=== PATIENT | male | born 2000 | race American Indian/Alaskan Native ===

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

== ENCOUNTER 2022-02-06 19:51 | Emergency (ER) | payer OTHER, SELFPAY ==
[2022-02-06] VITALS (10 sets, daily range): BP systolic 89–131; BP diastolic 51–76; PULSE 71–111; RESP 22–40; TEMP 36.6; O2SAT 96–100; BMI 18.8
--- NOTE | 2022-02-06 20:02 | ED.ALLEREA ---
HPI - Allergic Reaction General Chief complaint: Allergic Reaction Stated complaint: allergic reaction/anaphylaxsis Time Seen by Provider: 02/06/22 19:57 Source: patient and EMS Mode of arrival: EMS History of Present Illness HPI narrative: Patient brought here by ambulance from outdoor activity, he was stung by 3 bees on the right upper extremity. No stinger or welts seen on the arm at this time. Patient took his own EpiPen 0.3 mg and also EMS gave him an additional 0.3 mg epinephrine intramuscular. Also received 50 mg oral Benadryl. Patient states he was having oral swelling. Patient is awake alert oriented x4. Airway patent and intact. Patient on monitor, IV established. No rash or hives Related Data Home Medications Medication Instructions Recorded Confirmed MULTIVITAMIN 2 tab PO QDAY ##0 03/17/16 10/18/20 OMEGA-3 FATTY ACIDS (FISH OIL) 6.25 ml PO BID ##0 03/17/16 10/18/20 [BICITRA] 30 ml PO TID ##0 03/17/16 10/18/20 [PZU085] 8 ml ##0 03/17/16 10/18/20 [D5W/NA/MAG/K] 1,500 ml IV SEE INSTRUCTIONS ##0 03/17/16 10/18/20 [VIACTIV CA=D] 1 tab TID ##0 03/17/16 10/18/20 amlodipine 5 mg tablet (Norvasc) 5 mg PO BID ##0 03/17/16 10/18/20 atovaquone 750 mg/5 mL oral 8.5 ml PO ##0 03/17/16 10/18/20 suspension (Mepron) azithromycin 250 mg tablet 250 mg PO SEE INSTRUCTIONS ##0 03/17/16 10/18/20 (Zithromax Z-Papa) cholecalciferol (vitamin D3) 250 10,000 unit PO ##0 03/17/16 10/18/20 mcg (10,000 unit) tablet clonidine HCl 0.1 mg tablet 0.2 mg PO ##0 03/17/16 10/18/20 darbepoetin amina in polysorbat 100 0.1 mg IJ QWEEKMO ##0 03/17/16 10/18/20 mcg/0.5 mL in polysorbate injection syringe (Aranesp) fluticasone 100 mcg-salmeterol 50 1 puff BID ##0 03/17/16 10/18/20 mcg/dose blistr powdr for inhalation (Advair Diskus) ipratropium bromide 17 2 puff INH TID ##0 03/17/16 10/18/20 mcg/actuation HFA aerosol inhaler (Atrovent HFA) yfarlh-cvxwdvlb-tthvule 2 ecc PO AC ##0 03/17/16 10/18/20 10,000-34,000-55,000 unit capsule,delayed rel (Zenpep) loratadine 10 mg tablet (Claritin) 10 mg PO QDAYP PRN #0 tabs 03/17/16 10/18/20 lorazepam 1 mg tablet 1 mg PO QID ##0 03/17/16 10/18/20 montelukast 10 mg tablet 10 mg PO QDAY ##0 03/17/16 10/18/20 (Singulair) omeprazole 20 mg capsule,delayed 20 mg PO QDAY ##0 03/17/16 10/18/20 release ondansetron 4 mg disintegrating 5 ml PO TID ##0 03/17/16 10/18/20 tablet oxycodone 40 mg tablet,crush 4 ml PO QID ##0 03/17/16 10/18/20 resistant,extended release 12 hr (OxyContin) posaconazole 100 mg tablet,delayed 400 mg PO ##0 03/17/16 10/18/20 release (Noxafil) potassium chloride 8 mEq 3.75 ml PO TID ##0 03/17/16 10/18/20 tablet,extended release (Klor-Con) prednisone 10 mg tablet 10 mg PO #0 tabs 03/17/16 10/18/20 romiplostim 250 mcg subcutaneous 80 mcg SQ QWEEK ##0 03/17/16 10/18/20 solution (Nplate) sirolimus 1 mg/mL oral solution 0.25 mg PO ##0 03/17/16 10/18/20 (Rapamune) sodium chloride 0.9 % 5 ml INH BID ##0 03/17/16 10/18/20 enoxaparin 300 mg/3 mL SUBCUT 09/15/19 10/18/20 subcutaneous solution escitalopram oxalate 5 mg tablet 5 mg PO DAILY 09/15/19 10/18/20 fluticasone propionate 50 2 spray intranasal DAILY 09/15/19 10/18/20 mcg/actuation nasal spray,suspension (Allergy Relief (fluticasone)) pediatric multivitamin no.165 drop PO 09/15/19 10/18/20 (-Toddler Multivitamin oral drops) sevelamer HCl 800 mg tablet 800 mg PO TID 09/15/19 10/18/20 Previous Rx's Medication Instructions Recorded albuterol sulfate 90 mcg/actuation 4 puff inhalation Q4-6H PRN Cough 05/03/20 aerosol inhaler (Ventolin HFA) or wheeze #8.5 grams simethicone 80 mg chewable tablet 80 mg PO BID #120 tabs 06/25/20 (Gas Relief 80 (simethicone)) calcium carbonate 200 mg calcium See Rx Instructions .Route 07/30/20 (500 mg) chewable tablet (Calcium .COMPLEX #90 caps Antacid) lorazepam 2 mg/mL oral concentrate 2 mg sublingual .COMPLEX PRN 12/28/20 seizure #30 mL hydromorphone 2 mg tablet See Rx Instructions .Route 01/28/21 .COMPLEX #152 tabs methadone 10 mg tablet See Rx Instructions .Route 02/07/21 .COMPLEX #60 tabs gabapentin 300 mg capsule See Rx Instructions .Route 02/25/21 .COMPLEX #90 caps epinephrine 0.3 mg/0.3 mL 0.3 mg (0.3 mL) IM Q5-15M PRN 03/18/21 injection, auto-injector anaphylaxis #2 ea oxcarbazepine 150 mg tablet See Rx Instructions .Route 05/31/21 .COMPLEX #240 tabs levetiracetam 500 mg tablet See Rx Instructions .Route 06/14/21 .COMPLEX #120 tabs oxcarbazepine 600 mg tablet 600 mg PO BID #60 tabs 07/12/21 trazodone 100 mg tablet See Rx Instructions .Route 07/12/21 .COMPLEX #30 tabs hydrocortisone 10 mg tablet See Rx Instructions .Route 08/14/21 .COMPLEX #75 tabs epinephrine 0.3 mg/0.3 mL 0.3 mg (0.3 mL) IM Q5-15M PRN 02/06/22 injection, auto-injector (EpiPen anaphylaxis #2 ea 2-Papa) Allergies Allergy/AdvReac Type Severity Reaction Status Date / Time bee venom protein (honey bee) Allergy Severe Anaphylaxis Verified 02/06/22 20:03 chlorhexidine [CHLORHEXIDINE] Allergy Severe ANAPHLAXIS Verified 02/06/22 20:03 clocinizine Allergy Severe Anaphylaxis Verified 02/06/22 20:03 peppermint Allergy Severe Anaphylaxis Verified 02/06/22 20:03 Sulfa (Sulfonamide Allergy Severe Anaphylaxis Verified 02/06/22 20:03 Antibiotics) amphotericin B Allergy Unknown Verified 02/06/22 20:03 [From AMBISOME] ethyl alcohol [ETHYL ALCOHOL] Allergy Unknown Verified 02/06/22 20:03 mannitol [MANNITOL] Allergy Unknown Verified 02/06/22 20:03 vancomycin [VANCOMYCIN] Allergy Unknown Verified 02/06/22 20:03 Review of Systems Review of Systems Narrative: GENERAL: Denies chills, fatigue, malaise, fever, sweats. HEENT: Denies sinus pain, ear pain, sore throat, positive for oral swelling RESPIRATORY: Positive for dyspnea, negative for cough CARDIOVASCULAR: Denies chest pain, palpitations GASTROINTESTINAL: Denies nausea, vomiting, abdominal pain : Denies dysuria, frequency, hematuria MUSCULOSKELETAL: denies muscle or bony pain SKIN: Denies rash, skin lesions NEUROLOGIC: Denies weakness, numbness ROS Unobtainable: All systems reviewed & are unremarkable except as noted in HPI and below Patient History Medical History Aplastic anemia 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 Intracranial hemorrhage Status post craniectomy Status post total colectomy Social History Smoking Status: Never smoker Smoking Status: Never smoker alcohol intake frequency: 0-2 drinks per day Substance Use Type: does not use Exam Narrative Exam Narrative: GENERAL: in no distress, not toxic not dyspneic HEAD: Normocephalic. EYES: Pupils equal round No scleral icterus. ENT: Mucous membranes moist. No oral swelling. No lip or tongue swelling NECK: Trachea midline. No stridor. No neck swelling. CARDIOVASCULAR: Regular rate and rhythm without murmurs RESPIRATORY: Clear to auscultation. Breath sounds equal bilaterally. No wheezes, rales, or rhonchi. GASTROINTESTINAL: Abdomen soft, non-tender EXTREMITIES: No gross deformities. BACK: No flank tenderness. NEURO: AOx4. SKIN: Warm and dry, no hives. No stinger seen on right upper extremity. PSYCH: Not anxious, is cooperative Initial Vital Signs Initial Vital Signs: Vital Signs Temperature 98 F 02/06/22 19:55 Pulse Rate 83 02/06/22 19:55 Respiratory Rate 22 02/06/22 19:55 Blood Pressure 131/71 02/06/22 19:55 Pulse Oximetry 99 02/06/22 19:55 Oxygen Delivery Method 02/06/22 19:55 Course Course Course Narrative: No new issues during course of stay. Orders Ordered: Discontinued Medications Methylprednisolone (Methylprednisolone 125 Mg/2 Ml Vial) 125 mg IV NOW ONE Stop: 02/06/22 20:03 Last Admin: 02/06/22 20:05 Dose: 125 mg Documented By: EB Reevaluation(s) Reevaluation #1: Patient resting comfortably. Hemodynamically stable. No rash or swelling or hives or anaphylaxis. No trouble breathing. Patient and mother desired discharge home. Time: 22:29 Vital Signs Vital signs: Vital Signs - 8 hr 02/06/22 19:55 02/06/22 19:58 02/06/22 20:00 Temperature 98 F Pulse Rate 83 77 75 Respiratory Rate 22 Blood Pressure 131/71 Pulse Oximetry 99 100 100 Oxygen Delivery Method Room Air 02/06/22 20:12 02/06/22 20:12 02/06/22 20:30 Temperature Pulse Rate 111 H Respiratory Rate 31 H Blood Pressure 119/76 106/64 Pulse Oximetry 100 Oxygen Delivery Method 02/06/22 20:30 02/06/22 21:00 02/06/22 21:30 Temperature Pulse Rate 84 Respiratory Rate 40 H Blood Pressure 102/61 108/60 Pulse Oximetry 99 Oxygen Delivery Method 02/06/22 21:30 02/06/22 22:00 02/06/22 22:00 Temperature Pulse Rate 85 76 Respiratory Rate 30 H 24 Blood Pressure 89/51 L Pulse Oximetry 99 96 Oxygen Delivery Method 02/06/22 22:12 02/06/22 22:12 Temperature Pulse Rate 71 Respiratory Rate 23 Blood Pressure 103/56 L Pulse Oximetry 99 Oxygen Delivery Method MDM - Allergic Reaction Differential Diagnosis Differential diagnosis: Likely anaphylaxis and allergic reaction MDM Narrative Medical decision making narrative: Appropriate for discharge home. Patient has been stable during course of stay. No anaphylaxis is here. Observed 3 hours after onset of the sting Discharge Plan Departure Patient Disposition: Home Clinical Impression: Allergic reaction to bee sting Instructions: DI for Anaphylaxis Activity Restrictions/Additional Instructions: No driving or operating machinery tonight. Prescription for refill for epinephrine/EpiPen has been provided. Return if worsening questions or concerns or if any trouble breathing. Prescriptions: New epinephrine [EpiPen 2-Papa] 0.3 mg/0.3 mL auto-injector 0.3 mg IM Q5-15M PRN (Reason: anaphylaxis) Qty: 2 0RF Rx Instructions: do not exceed 3 doses per episode No Action sevelamer HCl 800 mg tablet 800 mg PO TID enoxaparin 300 mg/3 mL solution subcut escitalopram oxalate 5 mg tablet 5 mg PO DAILY fluticasone propionate [Allergy Relief (fluticasone)] 50 mcg/actuation spray,suspension 2 spray NASAL DAILY Infant-Toddler Multivitamin Drops PO albuterol sulfate [Ventolin HFA] 90 mcg/actuation HFA aerosol inhaler 4 puff inhalation Q4-6H PRN (Reason: Cough or wheeze) Qty: 8.5 4RF sirolimus [Rapamune] 1 MG/1 ML solution 0.25 mg PO Qty: 0 prednisone 10 MG tablet 10 mg PO Qty: 0 atovaquone [Mepron] 750 MG/5 ML suspension 8.5 ml PO Qty: 0 posaconazole [Noxafil] 100 MG tablet,delayed release (DR/EC) 400 mg PO Qty: 0 [PSY296] 8 ml Qty: 0 azithromycin [Zithromax Z-Papa] 250 MG tablet 250 mg PO SEE INSTRUCTIONS Qty: 0 montelukast [Singulair] 10 MG tablet 10 mg PO QDAY Qty: 0 fluticasone propion-salmeterol [Advair Diskus] 100 MCG/50 MCG blister with device 1 puff BID Qty: 0 Atrovent HFA 12.9 GM HFA aerosol inhaler 2 puff INH TID Qty: 0 sodium chloride 0.9 % 10 ML solution 5 ml INH BID Qty: 0 omeprazole 20 MG capsule,delayed release(DR/EC) 20 mg PO QDAY Qty: 0 Zenpep 10,000 UNITS capsule,delayed release(DR/EC) 2 ecc PO AC Qty: 0 clonidine HCl 0.1 MG tablet 0.2 mg PO Qty: 0 amlodipine [Norvasc] 5 MG tablet 5 mg PO BID Qty: 0 MULTIVITAMIN 2 tab PO QDAY Qty: 0 [VIACTIV CA=D] 1 tab TID Qty: 0 [BICITRA] 30 ml PO TID Qty: 0 potassium chloride [Klor-Con 8] 8 MEQ tablet extended release 3.75 ml PO TID Qty: 0 cholecalciferol (vitamin D3) 10,000 UNIT tablet 10,000 unit PO Qty: 0 loratadine [Claritin] 10 MG tablet 10 mg PO QDAYP PRNQty: 0 lorazepam 1 MG tablet 1 mg PO QID Qty: 0 OMEGA-3 FATTY ACIDS (FISH OIL) 6.25 ml PO BID Qty: 0 ondansetron 4 MG tablet,disintegrating 5 ml PO TID Qty: 0 oxycodone [OxyContin] 40 MG tablet,oral only,ext.rel.12 hr 4 ml PO QID Qty: 0 [D5W/NA/MAG/K] 1,500 ml IV SEE INSTRUCTIONS Qty: 0 Aranesp (in polysorbate) 100 MCG/0.5 ML syringe 0.1 mg IJ QWEEKMO Qty: 0 Nplate 250 MCG recon soln 80 mcg SQ QWEEK Qty: 0 simethicone [Gas Relief 80 (simethicone)] 80 mg tablet,chewable 80 mg PO BID Qty: 120 1RF calcium carbonate [Calcium Antacid] 200 mg calcium (500 mg) tablet,chewable See Rx Instructions .ROUTE .COMPLEX Qty: 90 4RF Dose Instruction: TAKE 2 TABLETS BY MOUTH THREE TIMES DAILY FOR INDIGESTION Rx Instructions: TAKE 2 TABLETS BY MOUTH THREE TIMES DAILY FOR INDIGESTION lorazepam 2 mg/mL concentrate 2 mg sublingual .COMPLEX PRN (Reason: seizure) Qty: 30 0RF Rx Instructions: 1 mL at onset of seizure. Take another 1 ml after two minutes if still seizing. hydromorphone 2 mg tablet See Rx Instructions .ROUTE .COMPLEX Qty: 152 0RF Dose Instruction: TAKE 3 TABLETS (3 X 2 MG) BY MOUTH EVERY 3 HOURS NEEDED FOR PAIN Rx Instructions: TAKE 3 TABLETS (3 X 2 MG) BY MOUTH EVERY 3 HOURS NEEDED FOR PAIN methadone 10 mg tablet See Rx Instructions .ROUTE .COMPLEX Qty: 60 0RF Dose Instruction: TAKE 1 TABLET BY MOUTH EVERY 12 HOURS FOR PAIN Rx Instructions: TAKE 1 TABLET BY MOUTH EVERY 12 HOURS FOR PAIN gabapentin 300 mg capsule See Rx Instructions .ROUTE .COMPLEX Qty: 90 2RF Dose Instruction: TAKE 1 CAPSULE BY MOUTH THREE TIMES DAILY Rx Instructions: TAKE 1 CAPSULE BY MOUTH THREE TIMES DAILY oxcarbazepine 150 mg tablet See Rx Instructions .ROUTE .COMPLEX Qty: 240 2RF Dose Instruction: TAKE 4 TABLETS BY MOUTH EVERY MORNING AND TAKE 3 TABLETS BY MOUTH EVERY EVENING Rx Instructions: TAKE 4 TABLETS BY MOUTH EVERY MORNING AND TAKE 4 TABLETS BY MOUTH EVERY EVENING levetiracetam 500 mg tablet See Rx Instructions .ROUTE .COMPLEX Qty: 120 2RF Dose Instruction: TAKE 2 TABLETS BY MOUTH (1000 MG) TWICE DAILY FOR SEIZURES Rx Instructions: TAKE 2 TABLETS BY MOUTH (1000 MG) TWICE DAILY FOR SEIZURES trazodone 100 mg tablet See Rx Instructions .ROUTE .COMPLEX Qty: 30 0RF Dose Instruction: TAKE 1 TABLET BY MOUTH BEDTIME Rx Instructions: TAKE 1 TABLET BY MOUTH BEDTIME oxcarbazepine 600 mg tablet 600 mg PO BID Qty: 60 0RF hydrocortisone 10 mg tablet See Rx Instructions .ROUTE .COMPLEX Qty: 75 0RF Dose Instruction: TAKE 1/2 TABLET EVERY AM, 1/2 TABLET AT NOON AND 1/4 TABLET EVERY EVENING FOR ADRENAL SUPPORT Rx Instructions: TAKE 1/2 TABLET EVERY AM, 1/2 TABLET AT NOON AND 1/4 TABLET EVERY EVENING FOR ADRENAL SUPPORT epinephrine 0.3 mg/0.3 mL auto-injector 0.3 mg IM Q5-15M PRN (Reason: anaphylaxis) Qty: 2 2RF Rx Instructions: do not exceed 3 doses per episode Referrals: Yordy Lantigua MD [Primary Care Provider] - Visit Report Forms: Patient Portal/API
[2022-02-06] MEDS: methylPREDNISolone 125 MG/2 ML VIAL IV (20:05)
--- NOTE | 2022-02-06 20:34 | PC.NURSE ---
Lung sounds remain clear at this time. Pt denies worsening symptoms. Pt very sleepy after benadryl.
== END 2022-02-06 22:35 | disposition home or self-care (01) ==
PROVIDERS: Emergency Provider Emergency Medicine; PCP Pediatrics Pediatric Nephrology
DX: T63.441A Toxic effect of venom of bees, accidental (unintentional), initial encounter (principal)
CPT/HCPCS: 96374; 99284; J2930

== ENCOUNTER 2022-05-08 13:50 | Emergency (ER) | payer OTHER, SELFPAY ==
[2022-05-08 13:56] VITALS: BP 104/72; PULSE 96; RESP 16; TEMP 36.9; O2SAT 100; BMI 17.6
--- NOTE | 2022-05-08 14:02 | ED_ITS ---
HPI - Animal Bite General Chief Complaint: Animal Bite Stated Complaint: Dog bite/seizure Time Seen by Provider: 05/08/22 13:51 Source: patient and EMS Mode of arrival: EMS History of Present Illness HPI narrative: 21-year-old male. Has multiple chronic medical problems. Had a kidney transplant earlier this year. Is on tacrolimus. Sustained a dog bite to his right knee. The dog did belonged to a family member. Afterwards the patient had a seizure. He does have a history of seizures. He was given Valium by his mother. He was brought to the emergency department by EMS for evaluation of the dog biting concern because of his immunocompromised status. Related Data Home Medications Medication Instructions Recorded Confirmed MULTIVITAMIN 2 tab PO QDAY ##0 03/17/16 10/18/20 OMEGA-3 FATTY ACIDS (FISH OIL) 6.25 ml PO BID ##0 03/17/16 10/18/20 [BICITRA] 30 ml PO TID ##0 03/17/16 10/18/20 [LDD187] 8 ml ##0 03/17/16 10/18/20 [D5W/NA/MAG/K] 1,500 ml IV SEE INSTRUCTIONS ##0 03/17/16 10/18/20 [VIACTIV CA=D] 1 tab TID ##0 03/17/16 10/18/20 amlodipine 5 mg tablet (Norvasc) 5 mg PO BID ##0 03/17/16 10/18/20 atovaquone 750 mg/5 mL oral 8.5 ml PO ##0 03/17/16 10/18/20 suspension (Mepron) azithromycin 250 mg tablet 250 mg PO SEE INSTRUCTIONS ##0 03/17/16 10/18/20 (Zithromax Z-Papa) cholecalciferol (vitamin D3) 250 10,000 unit PO ##0 03/17/16 10/18/20 mcg (10,000 unit) tablet clonidine HCl 0.1 mg tablet 0.2 mg PO ##0 03/17/16 10/18/20 darbepoetin amina in polysorbat 100 0.1 mg IJ QWEEKMO ##0 03/17/16 10/18/20 mcg/0.5 mL in polysorbate injection syringe (Aranesp) fluticasone 100 mcg-salmeterol 50 1 puff BID ##0 03/17/16 10/18/20 mcg/dose blistr powdr for inhalation (Advair Diskus) ipratropium bromide 17 2 puff INH TID ##0 03/17/16 10/18/20 mcg/actuation HFA aerosol inhaler (Atrovent HFA) mavcsj-lsfcciam-opqusse 2 ecc PO AC ##0 03/17/16 10/18/20 10,000-34,000-55,000 unit capsule,delayed rel (Zenpep) loratadine 10 mg tablet (Claritin) 10 mg PO QDAYP PRN #0 tabs 03/17/16 10/18/20 lorazepam 1 mg tablet 1 mg PO QID ##0 03/17/16 10/18/20 montelukast 10 mg tablet 10 mg PO QDAY ##0 03/17/16 10/18/20 (Singulair) omeprazole 20 mg capsule,delayed 20 mg PO QDAY ##0 03/17/16 10/18/20 release ondansetron 4 mg disintegrating 5 ml PO TID ##0 03/17/16 10/18/20 tablet oxycodone 40 mg tablet,crush 4 ml PO QID ##0 03/17/16 10/18/20 resistant,extended release 12 hr (OxyContin) posaconazole 100 mg tablet,delayed 400 mg PO ##0 03/17/16 10/18/20 release (Noxafil) potassium chloride 8 mEq 3.75 ml PO TID ##0 03/17/16 10/18/20 tablet,extended release (Klor-Con) prednisone 10 mg tablet 10 mg PO #0 tabs 03/17/16 10/18/20 romiplostim 250 mcg subcutaneous 80 mcg SQ QWEEK ##0 03/17/16 10/18/20 solution (Nplate) sirolimus 1 mg/mL oral solution 0.25 mg PO ##0 03/17/16 10/18/20 (Rapamune) sodium chloride 0.9 % 5 ml INH BID ##0 03/17/16 10/18/20 enoxaparin 300 mg/3 mL SUBCUT 09/15/19 10/18/20 subcutaneous solution escitalopram oxalate 5 mg tablet 5 mg PO DAILY 09/15/19 10/18/20 fluticasone propionate 50 2 spray intranasal DAILY 09/15/19 10/18/20 mcg/actuation nasal spray,suspension (Allergy Relief (fluticasone)) pediatric multivitamin no.165 drop PO 09/15/19 10/18/20 (-Toddler Multivitamin oral drops) sevelamer HCl 800 mg tablet 800 mg PO TID 09/15/19 10/18/20 Previous Rx's Medication Instructions Recorded albuterol sulfate 90 mcg/actuation 4 puff inhalation Q4-6H PRN Cough 05/03/20 aerosol inhaler (Ventolin HFA) or wheeze #8.5 grams simethicone 80 mg chewable tablet 80 mg PO BID #120 tabs 06/25/20 (Gas Relief 80 (simethicone)) calcium carbonate 200 mg calcium See Rx Instructions .Route 07/30/20 (500 mg) chewable tablet (Calcium .COMPLEX #90 caps Antacid) lorazepam 2 mg/mL oral concentrate 2 mg sublingual .COMPLEX PRN 12/28/20 seizure #30 mL hydromorphone 2 mg tablet See Rx Instructions .Route 01/28/21 .COMPLEX #152 tabs methadone 10 mg tablet See Rx Instructions .Route 02/07/21 .COMPLEX #60 tabs gabapentin 300 mg capsule See Rx Instructions .Route 02/25/21 .COMPLEX #90 caps epinephrine 0.3 mg/0.3 mL 0.3 mg (0.3 mL) IM Q5-15M PRN 03/18/21 injection, auto-injector anaphylaxis #2 ea oxcarbazepine 150 mg tablet See Rx Instructions .Route 05/31/21 .COMPLEX #240 tabs levetiracetam 500 mg tablet See Rx Instructions .Route 06/14/21 .COMPLEX #120 tabs oxcarbazepine 600 mg tablet 600 mg PO BID #60 tabs 07/12/21 trazodone 100 mg tablet See Rx Instructions .Route 07/12/21 .COMPLEX #30 tabs hydrocortisone 10 mg tablet See Rx Instructions .Route 08/14/21 .COMPLEX #75 tabs epinephrine 0.3 mg/0.3 mL 0.3 mg (0.3 mL) IM Q5-15M PRN 02/06/22 injection, auto-injector (EpiPen anaphylaxis #2 ea 2-Papa) amoxicillin 875 mg-potassium 1 tab PO BID 5 days #10 tabs 05/08/22 clavulanate 125 mg tablet Allergies Allergy/AdvReac Type Severity Reaction Status Date / Time bee venom protein (honey bee) Allergy Severe Anaphylaxis Verified 05/08/22 13:59 chlorhexidine [CHLORHEXIDINE] Allergy Severe ANAPHLAXIS Verified 05/08/22 13:59 clocinizine Allergy Severe Anaphylaxis Verified 05/08/22 13:59 peppermint Allergy Severe Anaphylaxis Verified 05/08/22 13:59 Sulfa (Sulfonamide Allergy Severe Anaphylaxis Verified 05/08/22 13:59 Antibiotics) amphotericin B Allergy Unknown Verified 05/08/22 13:59 [From AMBISOME] ethyl alcohol [ETHYL ALCOHOL] Allergy Unknown Verified 05/08/22 13:59 mannitol [MANNITOL] Allergy Unknown Verified 05/08/22 13:59 vancomycin [VANCOMYCIN] Allergy Unknown Verified 05/08/22 13:59 Review of Systems Musculoskeletal Musculoskeletal: Reports system reviewed and no additional complaints, except as documented Integumentary/Breasts Skin/Breast: Reports system reviewed and no additional complaints, except as documented Neurologic Neurologic: Reports system reviewed and no additional complaints, except as documented Patient History Medical History Aplastic anemia 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 Intracranial hemorrhage Status post craniectomy Status post total colectomy Social History Smoking Status: Never smoker Smoking Status: Never smoker alcohol intake frequency: 0-2 drinks per day Substance Use Type: does not use Exam Initial Vital Signs Initial Vital Signs: Vital Signs Temperature 98.4 F 05/08/22 13:56 Pulse Rate 96 H 05/08/22 13:56 Respiratory Rate 16 05/08/22 13:56 Blood Pressure 104/72 05/08/22 13:56 Pulse Oximetry 100 05/08/22 13:56 Oxygen Delivery Method 05/08/22 13:56 Const General: cooperative and comfortable HENRI Head: normal to inspection and normocephalic Skin Other: Three distinct 1 cm less lacerations with to being on the lateral aspect of the right knee and 1 being posterior aspect right leg just distal to the knee. No active bleeding. Neuro General: patient alert, patient awake and moves all extremities Extrem Other: Dog bite right knee. Course Orders Ordered: ED Orders 05/08/22 14:02 XR knee RT 3V Stat Vital Signs Vital signs: Vital Signs - 8 hr 05/08/22 13:56 Temperature 98.4 F Pulse Rate 96 H Respiratory Rate 16 Blood Pressure 104/72 Pulse Oximetry 100 Oxygen Delivery Method Room Air MDM - Animal Bite Imaging Data Extremity x-ray #1: Radiologist's Impression: [address] [address] XRay Report Signed Patient: Da Barclay MR#: [id number] : 2000 Acct:[id number] Age/Sex: 21 / M Date of Service: 05/08/22 Loc: ED Accession Number: [id number] ?? Procedure: XR knee RT 3V Ordering Provider: Enrique Sheehan D.O. PROCEDURE:? XR KNEE RT 3V ? INDICATIONS:? dog bite eval for FB ? TECHNIQUE:? 3 views of the knee were acquired.? ? COMPARISON:? None. ? FINDINGS:? ? Bones:? No fractures or dislocations.? No suspicious bony lesions.? Prominent trabeculation within the distal femur. ? Soft tissues:? No joint effusion.? No suspicious soft tissue calcifications.? Soft tissue gas is present, predominantly posteriorly. ? ? IMPRESSION:? 1. Soft tissue gas, consistent with dog bite injury. 2. Prominent trabeculation within the distal femur, suggestive of a hypermetabolic syndrome such as hemoglobinopathy, hyperparathyroidism, or rickets.? Clinical correlation recommended. 3. No acute fracture. No osseous lesion. If symptoms and/or clinical suspicion for pathology persist, further assessment with repeat, or advanced imaging (e.g., CT, MRI, or bone scan) may be helpful for further assessment. ? ? Dictated by: Idalia Mckeon M.D. on 05/08/2022 at 14:19 ? ? Approved by: Idalia Mckeon M.D. on 05/08/2022 at 14:29 [facility] Narrative Medical decision making narrative: Three puncture wounds to his right lower extremity. We will not suture these together to allow for drainage. The x-ray shows no signs of foreign body. Given his immunocompromised state in the use of tacrolimus will start him on antibiotics. Discussed this with the patient and mother. They expressed understanding and agreement. Discharge Plan Departure Patient Disposition: Home Clinical Impression: Dog bite, Seizure Instructions: DI for Seizure Disorder -- Adult, DI for Dog Bite Activity Restrictions/Additional Instructions: I do recommend that you continue to take all of your medications as directed. You can cover the wounds around the right knee with bandages. You can bathe like normal and use soap and water like normal. Return to the emergency de partment for any new or worsening symptoms. Prescriptions: New amoxicillin-pot clavulanate 875-125 mg tablet 1 tab PO BID 5 Days Qty: 10 0RF No Action sevelamer HCl 800 mg tablet 800 mg PO TID enoxaparin 300 mg/3 mL solution subcut escitalopram oxalate 5 mg tablet 5 mg PO DAILY fluticasone propionate [Allergy Relief (fluticasone)] 50 mcg/actuation spray,suspension 2 spray NASAL DAILY -Toddler Multivitamin Drops PO albuterol sulfate [Ventolin HFA] 90 mcg/actuation HFA aerosol inhaler 4 puff inhalation Q4-6H PRN (Reason: Cough or wheeze) Qty: 8.5 4RF sirolimus [Rapamune] 1 MG/1 ML solution 0.25 mg PO Qty: 0 prednisone 10 MG tablet 10 mg PO Qty: 0 atovaquone [Mepron] 750 MG/5 ML suspension 8.5 ml PO Qty: 0 posaconazole [Noxafil] 100 MG tablet,delayed release (DR/EC) 400 mg PO Qty: 0 [FSP653] 8 ml Qty: 0 azithromycin [Zithromax Z-Papa] 250 MG tablet 250 mg PO SEE INSTRUCTIONS Qty: 0 montelukast [Singulair] 10 MG tablet 10 mg PO QDAY Qty: 0 fluticasone propion-salmeterol [Advair Diskus] 100 MCG/50 MCG blister with device 1 puff BID Qty: 0 Atrovent HFA 12.9 GM HFA aerosol inhaler 2 puff INH TID Qty: 0 sodium chloride 0.9 % 10 ML solution 5 ml INH BID Qty: 0 omeprazole 20 MG capsule,delayed release(DR/EC) 20 mg PO QDAY Qty: 0 Zenpep 10,000 UNITS capsule,delayed release(DR/EC) 2 ecc PO AC Qty: 0 clonidine HCl 0.1 MG tablet 0.2 mg PO Qty: 0 amlodipine [Norvasc] 5 MG tablet 5 mg PO BID Qty: 0 MULTIVITAMIN 2 tab PO QDAY Qty: 0 [VIACTIV CA=D] 1 tab TID Qty: 0 [BICITRA] 30 ml PO TID Qty: 0 potassium chloride [Klor-Con 8] 8 MEQ tablet extended release 3.75 ml PO TID Qty: 0 cholecalciferol (vitamin D3) 10,000 UNIT tablet 10,000 unit PO Qty: 0 loratadine [Claritin] 10 MG tablet 10 mg PO QDAYP PRNQty: 0 lorazepam 1 MG tablet 1 mg PO QID Qty: 0 OMEGA-3 FATTY ACIDS (FISH OIL) 6.25 ml PO BID Qty: 0 ondansetron 4 MG tablet,disintegrating 5 ml PO TID Qty: 0 oxycodone [OxyContin] 40 MG tablet,oral only,ext.rel.12 hr 4 ml PO QID Qty: 0 [D5W/NA/MAG/K] 1,500 ml IV SEE INSTRUCTIONS Qty: 0 Aranesp (in polysorbate) 100 MCG/0.5 ML syringe 0.1 mg IJ QWEEKMO Qty: 0 Nplate 250 MCG recon soln 80 mcg SQ QWEEK Qty: 0 simethicone [Gas Relief 80 (simethicone)] 80 mg tablet,chewable 80 mg PO BID Qty: 120 1RF calcium carbonate [Calcium Antacid] 200 mg calcium (500 mg) tablet,chewable See Rx Instructions .ROUTE .COMPLEX Qty: 90 4RF Dose Instruction: TAKE 2 TABLETS BY MOUTH THREE TIMES DAILY FOR INDIGESTION Rx Instructions: TAKE 2 TABLETS BY MOUTH THREE TIMES DAILY FOR INDIGESTION lorazepam 2 mg/mL concentrate 2 mg sublingual .COMPLEX PRN (Reason: seizure) Qty: 30 0RF Rx Instructions: 1 mL at onset of seizure. Take another 1 ml after two minutes if still seizing. hydromorphone 2 mg tablet See Rx Instructions .ROUTE .COMPLEX Qty: 152 0RF Dose Instruction: TAKE 3 TABLETS (3 X 2 MG) BY MOUTH EVERY 3 HOURS NEEDED FOR PAIN Rx Instructions: TAKE 3 TABLETS (3 X 2 MG) BY MOUTH EVERY 3 HOURS NEEDED FOR PAIN methadone 10 mg tablet See Rx Instructions .ROUTE .COMPLEX Qty: 60 0RF Dose Instruction: TAKE 1 TABLET BY MOUTH EVERY 12 HOURS FOR PAIN Rx Instructions: TAKE 1 TABLET BY MOUTH EVERY 12 HOURS FOR PAIN gabapentin 300 mg capsule See Rx Instructions .ROUTE .COMPLEX Qty: 90 2RF Dose Instruction: TAKE 1 CAPSULE BY MOUTH THREE TIMES DAILY Rx Instructions: TAKE 1 CAPSULE BY MOUTH THREE TIMES DAILY oxcarbazepine 150 mg tablet See Rx Instructions .ROUTE .COMPLEX Qty: 240 2RF Dose Instruction: TAKE 4 TABLETS BY MOUTH EVERY MORNING AND TAKE 3 TABLETS BY MOUTH EVERY EVENING Rx Instructions: TAKE 4 TABLETS BY MOUTH EVERY MORNING AND TAKE 4 TABLETS BY MOUTH EVERY EVENING levetiracetam 500 mg tablet See Rx Instructions .ROUTE .COMPLEX Qty: 120 2RF Dose Instruction: TAKE 2 TABLETS BY MOUTH (1000 MG) TWICE DAILY FOR SEIZURES Rx Instructions: TAKE 2 TABLETS BY MOUTH (1000 MG) TWICE DAILY FOR SEIZURES trazodone 100 mg tablet See Rx Instructions .ROUTE .COMPLEX Qty: 30 0RF Dose Instruction: TAKE 1 TABLET BY MOUTH BEDTIME Rx Instructions: TAKE 1 TABLET BY MOUTH BEDTIME oxcarbazepine 600 mg tablet 600 mg PO BID Qty: 60 0RF hydrocortisone 10 mg tablet See Rx Instructions .ROUTE .COMPLEX Qty: 75 0RF Dose Instruction: TAKE 1/2 TABLET EVERY AM, 1/2 TABLET AT NOON AND 1/4 TABLET EVERY EVENING FOR ADRENAL SUPPORT Rx Instructions: TAKE 1/2 TABLET EVERY AM, 1/2 TABLET AT NOON AND 1/4 TABLET EVERY EVENING FOR ADRENAL SUPPORT epinephrine 0.3 mg/0.3 mL auto-injector 0.3 mg IM Q5-15M PRN (Reason: anaphylaxis) Qty: 2 2RF Rx Instructions: do not exceed 3 doses per episode epinephrine [EpiPen 2-Papa] 0.3 mg/0.3 mL auto-injector 0.3 mg IM Q5-15M PRN (Reason: anaphylaxis) Qty: 2 0RF Rx Instructions: do not exceed 3 doses per episode Referrals: Yordy Lantigua MD [Primary Care Provider] -
--- NOTE | 2022-05-08 14:02 | DI.RAD.S_ITS ---
PROCEDURE: XR KNEE RT 3V INDICATIONS: dog bite eval for FB TECHNIQUE: 3 views of the knee were acquired. COMPARISON: None. FINDINGS: Bones: No fractures or dislocations. No suspicious bony lesions. Prominent trabeculation within the distal femur. Soft tissues: No joint effusion. No suspicious soft tissue calcifications. Soft tissue gas is present, predominantly posteriorly. IMPRESSION: 1. Soft tissue gas, consistent with dog bite injury. 2. Prominent trabeculation within the distal femur, suggestive of a hypermetabolic syndrome such as hemoglobinopathy, hyperparathyroidism, or rickets. Clinical correlation recommended. 3. No acute fracture. No osseous lesion. If symptoms and/or clinical suspicion for pathology persist, further assessment with repeat, or advanced imaging (e.g., CT, MRI, or bone scan) may be helpful for further assessment. Dictated by: Idalia Mckeon M.D. on 05/08/2022 at 14:19 Approved by: Idalia Mckeon M.D. on 05/08/2022 at 14:29
[2022-05-08 15:01] VITALS: BP 107/74; PULSE 81; RESP 16; O2SAT 98
== END 2022-05-08 15:04 | disposition home or self-care (01) ==
PROVIDERS: Emergency Provider Emergency Medicine; PCP Pediatrics Pediatric Nephrology
DX: S81.051A Open bite, right knee, initial encounter (principal); R56.9 Unspecified convulsions; W54.0XXA Bitten by dog, initial encounter
CPT/HCPCS: 73562; 99283

== ENCOUNTER 2022-05-19 20:14 | Emergency (ER) | payer OTHER, MEDICAID, SELFPAY ==
[2022-05-19] VITALS (11 sets, daily range): BP systolic 92–112; BP diastolic 54–60; PULSE 48–69; RESP 12–27; TEMP 36.6; O2SAT 99–100
--- NOTE | 2022-05-19 20:21 | DI.CT.S_ITS ---
PROCEDURE: CT HEAD/BRAIN WO CON INDICATIONS: seizure hx of aneurysm with craniotomy TECHNIQUE: Noncontrast 4.5 mm thick angled axial sections acquired from the foramen magnum to the vertex, with coronal and sagittal reformats. For radiation dose reduction, the following was used: automated exposure control, adjustment of mA and/or kV according to patient size. COMPARISON: [facility], CT, CT HEAD WITHOUT CONTRAST, 03/03/2022, 11:14. FINDINGS: Image quality: Excellent. CSF spaces: Basal cisterns are patent. No extra-axial fluid collections. Ventricles are stable in size and shape, mildly STIR distorted at the right temporal region by encephalomalacia from prior aneurysm repair and craniotomy.. Brain: No midline shift. No intracranial masses or hemorrhage. Davis-white matter interface is normal. Skull and face: Calvarium and visualized facial bones are intact, without suspicious lesions. Sinuses: Visualized sinuses and mastoids are clear. IMPRESSION: No interval currency exchange specialist time, prior encephalomalacia and craniotomy defect noted right temporal region, consistent with the stated clinical history of aneurysm repair in that area. No sign of new hemorrhage. Dictated by: Marco A Dewey M.D. on 05/19/2022 at 20:49 Approved by: Marco A Dewey M.D. on 05/19/2022 at 20:51
--- NOTE | 2022-05-19 20:27 | DI.RAD.S_ITS ---
PROCEDURE: XR CHEST 1V INDICATIONS: chest pain TECHNIQUE: One view of the chest was acquired. COMPARISON: None. FINDINGS: Surgical changes and devices: None. Lungs and pleura: Lungs are clear. No pleural effusions or pneumothorax. Mediastinum: Mediastinal contours appear normal. Heart size is normal. Bones and chest wall: No suspicious bony lesions. Overlying soft tissues appear unremarkable. IMPRESSION: Normal for age, source of current chest pain symptoms is not seen. Dictated by: Marco A Dewey M.D. on 05/19/2022 at 20:58 Approved by: Marco A Dewey M.D. on 05/19/2022 at 20:58
--- NOTE | 2022-05-19 20:56 | PC.NURSE ---
labs drawn via IV - pediatric blood tubes used - labeled at bedside and sent to lab
[2022-05-19 21:11] LABS: Add Manual Diff / Slide Review NO; Basophils Absolute Auto 100 /uL (0-100); Basophils Percent Auto 1.3 % (0-2); Eosinophils Absolute Auto 100 /uL (0-450); Eosinophils Percent Auto 1.2 % (2-4); Hematocrit 29.6 % (41-53); Hemoglobin 9.9 g/dL (13.5-17.5); Lymphocytes Absolute Auto 3300 /uL (1100-4500); Lymphocytes Percent Auto 32.4 % (25-40); Mean Corpuscular HGB Conc 33.5 % (30-36); Mean Corpuscular Hemoglobin 33.1 PG (26-34); Mean Corpuscular Volume 98.8 fL (80-100); Monocytes Absolute Auto 900 /uL (0-900); Monocytes Percent Auto 8.7 % (3-14); Neutrophils Absolute Auto 5800 /uL (1500-7000); Neutrophils Percent Auto 56.4 % (50-75); Red Blood Cell Count 2.99 X10^6/uL (4.5-5.9); Red Cell Distribution Width 13.4 % (11.6-14.8); White Blood Cell Count 10.3 X10^3/uL (4.5-11.0)
[2022-05-19] MEDS: SODIUM CHLORIDE 0.9% 1,000 ML 1000 ML IV (21:15)
--- NOTE | 2022-05-19 21:19 | PC.NURSE ---
urinal given at this time
--- NOTE | 2022-05-19 21:34 | PC.NURSE ---
redraw of blood performed at this time - RT at bedside for EKG
[2022-05-19 21:46] LABS: UR Morphine/Opiate cutoff 300 Negative (Negative); Ur Creatinine Normal (Normal); Ur Specific Gravity Normal (Normal); Urine Amphetamines Negative (Negative); Urine Barbiturates Negative (Negative); Urine Benzodiazepines Negative (Negative); Urine Cocaine Negative (Negative); Urine MDMA Negative (Negative); Urine Methadone Negative (Negative); Urine Methamphetamines Negative (Negative); Urine Oxycodone Negative (Negative); Urine Phencyclidine Negative (Negative); Urine Tetrahydrocannabinol Negative (Negative); Urine Tricyclic Antidepressant Negative (Negative); Urine pH Normal (Normal)
[2022-05-19 22:18] LABS: Alanine Aminotransferase 24 IU/L (<50); Albumin 3.6 g/dL (3.5-5.0); Albumin Globulin Ratio 1.1 (1.0-2.8); Alkaline Phosphatase 105 U/L (38-126); Aspartate Aminotransferase 29 IU/L (17-59); BUN Creatinine Ratio 16.4 (6-22); Bilirubin Total 0.3 mg/dL (0.2-1.3); Blood Urea Nitrogen 12 mg/dL (9-20); Calcium 9.9 mg/dL (8.4-10.2); Carbon Dioxide 29 mmol/L (22-32); Chloride 108 mmol/L (98-107); Creatine Kinase 168 U/L (55-170); Estimated Glomerular Filt Rate > 60 mL/min (>60); Globulin 3.4 g/dL (1.7-4.1); Glucose 89 mg/dL (70-100); HEMOLYSIS < 15 (0-50); Potassium 4.1 mmol/L (3.4-5.1); Sodium 144 mmol/L (137-145)
[2022-05-19 22:29] LABS: Troponin I < 0.012 ng/mL (0.01-0.034)
[2022-05-19 22:33] LABS: Creatine Kinase MB 3.31 ng/mL (<2.37)
--- NOTE | 2022-05-19 23:27 | ED_ITS ---
HPI - Seizure General Chief Complaint: Seizure Stated Complaint: Seizure Time Seen by Provider: 05/19/22 20:20 Source: patient and EMS Mode of arrival: EMS History of Present Illness HPI Narrative: The patient is a 21-year-old male history of aplastic anemia, kidney transplant, venous thrombosis, Oxana's syndrome, Arnold-Chiari malformation type 2, craniotomy, seizure activity, chronic pain due to compression fractures some left-sided hemiparesis it as well from multiple strokes presents today with chest pain and seizure. Patient apparently does have a seizure disorder he frequently has seizures when pain is out of control. He was having some chest discomfort while he was doing homework and studying when he then had a seizure. EMS was called he was mildly postictal normal. He said it was sharp and stabbing he states that he has had heart attacks and clots is however dad states that he has not had MIs. Related Data Home Medications Medication Instructions Recorded Confirmed MULTIVITAMIN 2 tab PO QDAY ##0 03/17/16 10/18/20 OMEGA-3 FATTY ACIDS (FISH OIL) 6.25 ml PO BID ##0 03/17/16 10/18/20 [BICITRA] 30 ml PO TID ##0 03/17/16 10/18/20 [DVX265] 8 ml ##0 03/17/16 10/18/20 [D5W/NA/MAG/K] 1,500 ml IV SEE INSTRUCTIONS ##0 03/17/16 10/18/20 [VIACTIV CA=D] 1 tab TID ##0 03/17/16 10/18/20 amlodipine 5 mg tablet (Norvasc) 5 mg PO BID ##0 03/17/16 10/18/20 atovaquone 750 mg/5 mL oral 8.5 ml PO ##0 03/17/16 10/18/20 suspension (Mepron) azithromycin 250 mg tablet 250 mg PO SEE INSTRUCTIONS ##0 03/17/16 10/18/20 (Zithromax Z-Papa) cholecalciferol (vitamin D3) 250 10,000 unit PO ##0 03/17/16 10/18/20 mcg (10,000 unit) tablet clonidine HCl 0.1 mg tablet 0.2 mg PO ##0 03/17/16 10/18/20 darbepoetin amina in polysorbat 100 0.1 mg IJ QWEEKMO ##0 03/17/16 10/18/20 mcg/0.5 mL in polysorbate injection syringe (Aranesp) fluticasone 100 mcg-salmeterol 50 1 puff BID ##0 03/17/16 10/18/20 mcg/dose blistr powdr for inhalation (Advair Diskus) ipratropium bromide 17 2 puff INH TID ##0 03/17/16 10/18/20 mcg/actuation HFA aerosol inhaler (Atrovent HFA) aaohlj-ehrjxkdy-clwjosg 2 ecc PO AC ##0 03/17/16 10/18/20 10,000-34,000-55,000 unit capsule,delayed rel (Zenpep) loratadine 10 mg tablet (Claritin) 10 mg PO QDAYP PRN #0 tabs 03/17/16 10/18/20 lorazepam 1 mg tablet 1 mg PO QID ##0 03/17/16 10/18/20 montelukast 10 mg tablet 10 mg PO QDAY ##0 03/17/16 10/18/20 (Singulair) omeprazole 20 mg capsule,delayed 20 mg PO QDAY ##0 03/17/16 10/18/20 release ondansetron 4 mg disintegrating 5 ml PO TID ##0 03/17/16 10/18/20 tablet oxycodone 40 mg tablet,crush 4 ml PO QID ##0 03/17/16 10/18/20 resistant,extended release 12 hr (OxyContin) posaconazole 100 mg tablet,delayed 400 mg PO ##0 03/17/16 10/18/20 release (Noxafil) potassium chloride 8 mEq 3.75 ml PO TID ##0 03/17/16 10/18/20 tablet,extended release (Klor-Con) prednisone 10 mg tablet 10 mg PO #0 tabs 03/17/16 10/18/20 romiplostim 250 mcg subcutaneous 80 mcg SQ QWEEK ##0 03/17/16 10/18/20 solution (Nplate) sirolimus 1 mg/mL oral solution 0.25 mg PO ##0 03/17/16 10/18/20 (Rapamune) sodium chloride 0.9 % 5 ml INH BID ##0 03/17/16 10/18/20 enoxaparin 300 mg/3 mL SUBCUT 09/15/19 10/18/20 subcutaneous solution escitalopram oxalate 5 mg tablet 5 mg PO DAILY 09/15/19 10/18/20 fluticasone propionate 50 2 spray intranasal DAILY 09/15/19 10/18/20 mcg/actuation nasal spray,suspension (Allergy Relief (fluticasone)) pediatric multivitamin no.165 drop PO 09/15/19 10/18/20 (Infant-Toddler Multivitamin oral drops) sevelamer HCl 800 mg tablet 800 mg PO TID 09/15/19 10/18/20 Previous Rx's Medication Instructions Recorded albuterol sulfate 90 mcg/actuation 4 puff inhalation Q4-6H PRN Cough 05/03/20 aerosol inhaler (Ventolin HFA) or wheeze #8.5 grams simethicone 80 mg chewable tablet 80 mg PO BID #120 tabs 06/25/20 (Gas Relief 80 (simethicone)) calcium carbonate 200 mg calcium See Rx Instructions .Route 07/30/20 (500 mg) chewable tablet (Calcium .COMPLEX #90 caps Antacid) lorazepam 2 mg/mL oral concentrate 2 mg sublingual .COMPLEX PRN 12/28/20 seizure #30 mL hydromorphone 2 mg tablet See Rx Instructions .Route 01/28/21 .COMPLEX #152 tabs methadone 10 mg tablet See Rx Instructions .Route 02/07/21 .COMPLEX #60 tabs gabapentin 300 mg capsule See Rx Instructions .Route 02/25/21 .COMPLEX #90 caps epinephrine 0.3 mg/0.3 mL 0.3 mg (0.3 mL) IM Q5-15M PRN 03/18/21 injection, auto-injector anaphylaxis #2 ea oxcarbazepine 150 mg tablet See Rx Instructions .Route 05/31/21 .COMPLEX #240 tabs levetiracetam 500 mg tablet See Rx Instructions .Route 06/14/21 .COMPLEX #120 tabs oxcarbazepine 600 mg tablet 600 mg PO BID #60 tabs 07/12/21 trazodone 100 mg tablet See Rx Instructions .Route 07/12/21 .COMPLEX #30 tabs hydrocortisone 10 mg tablet See Rx Instructions .Route 08/14/21 .COMPLEX #75 tabs epinephrine 0.3 mg/0.3 mL 0.3 mg (0.3 mL) IM Q5-15M PRN 02/06/22 injection, auto-injector (EpiPen anaphylaxis #2 ea 2-Papa) Allergies Allergy/AdvReac Type Severity Reaction Status Date / Time bee venom protein (honey bee) Allergy Severe Anaphylaxis Verified 05/19/22 20:34 chlorhexidine [CHLORHEXIDINE] Allergy Severe ANAPHLAXIS Verified 05/19/22 20:34 clocinizine Allergy Severe Anaphylaxis Verified 05/19/22 20:34 peppermint Allergy Severe Anaphylaxis Verified 05/19/22 20:34 Sulfa (Sulfonamide Allergy Severe Anaphylaxis Verified 05/19/22 20:34 Antibiotics) amphotericin B Allergy Unknown Verified 05/19/22 20:34 [From AMBISOME] ethyl alcohol [ETHYL ALCOHOL] Allergy Unknown Verified 05/19/22 20:34 mannitol [MANNITOL] Allergy Unknown Verified 05/19/22 20:34 vancomycin [VANCOMYCIN] Allergy Unknown Verified 05/19/22 20:34 Review of Systems Review of Systems Narrative: GENERAL: Denies chills, fatigue, malaise, fever, sweats, travel HEENT: Denies sinus pain, ear pain, sore throat, difficulty swallowing, neck pain RESPIRATORY: Denies dyspnea, cough, wheezing, hemoptysis, sputum. CARDIOVASCULAR: See HPI GASTROINTESTINAL: Denies nausea, vomiting, abdominal pain, diarrhea, constipati on, melena. : Denies dysuria, frequency, incontinence, hematuria, urinary retention, flank pain. MUSCULOSKELETAL: Denies weakness, joint pain, or bony pain SKIN: No rash, no erythema, no pruritus NEUROLOGIC: Denies weakness, dizziness, headache, numbness, change in speech, confusion PSYCHIATRIC: No concerning psychosocial issues. 12 point review of systems is negative except for those stated above and HPI Patient History Medical History Aplastic anemia 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 Intracranial hemorrhage Status post craniectomy Status post total colectomy Social History Smoking Status: Never smoker Smoking Status: Never smoker alcohol intake frequency: 0-2 drinks per day Substance Use Type: does not use Exam Initial Vital Signs Initial Vital Signs: Vital Signs Pulse Rate 50 L 05/19/22 20:22 Respiratory Rate 12 05/19/22 20:22 Blood Pressure 97/60 05/19/22 20:22 Pulse Oximetry 100 05/19/22 20:22 GENERAL: Chronically ill thin 21-year-old male HEENT: Head atraumatic,EOMI, pupils reactive, face symmetric, moist mucous membranes CARDIOVASCULAR: Regular rate and rhythm without murmurs, rubs or gallops. RESPIRATORY: Breath sounds equal bilaterally, no wheezes rales or rhonchi. ABDOMEN: Soft, nontender. Normoactive bowel sounds all 4 quadrants. No guarding or rebound. EXTREMITIES: Normal range of motion, no clubbing or edema. Neurovascularly intact NEUROLOGICAL: Alert and oriented x4.Normal gait and speech. SKIN: Scars noted on arms is no erythema around Course Orders Ordered: ED Orders 05/19/22 21:30 Urine Drug Screen, Rapid Stat 05/19/22 21:59 CMP [Comprehensive Metabolic Panel] Stat Prolactin Stat Troponin & CK Cardiac Panel Stat 05/19/22 23:37 Troponin & CK Cardiac Panel Stat 05/20/22 00:01 CT angio chest abdomen pelvis Stat Discontinued Medications Diphenhydramine HCl (Diphenhydramine 50 Mg/Ml Vial) 25 mg IV NOW ONE Stop: 05/20/22 00:12 Last Admin: 05/20/22 00:18 Dose: 25 mg Documented By: ELEAZAR Sodium Chloride (Normal Saline 0.9%) 1,000 mls @ 1,000 mls/hr IV BOLUS ONE Stop: 05/19/22 21:21 Last Infusion: 05/20/22 02:00 Dose: 0 mls/hr Documented By: Admin: 05/19/22 21:15 Dose: 1,000 mls/hr Documented By: SB Vital Signs Vital signs: Vital Signs - 8 hr 05/19/22 22:30 05/19/22 22:49 05/19/22 22:49 Pulse Rate 69 65 Respiratory Rate Blood Pressure 99/54 L Pulse Oximetry 05/19/22 23:00 05/19/22 23:30 05/20/22 02:10 Pulse Rate 62 48 L Respiratory Rate 20 27 H Blood Pressure 115/67 Pulse Oximetry 05/20/22 00:00 05/20/22 00:30 05/20/22 01:00 Pulse Rate 47 L 46 L 53 L Respiratory Rate 29 H 10 L 26 H Blood Pressure Pulse Oximetry 99 99 05/20/22 01:30 05/20/22 02:00 Pulse Rate 48 L 51 L Respiratory Rate 25 H Blood Pressure Pulse Oximetry 100 MDM - Seizure Lab Data Result diagrams: 05/19/22 20:50 05/19/22 21:59 Labs: Lab Results 05/19/22 05/19/22 05/19/22 Range/Units 20:50 20:50 21:30 WBC 10.3 (4.5-11.0) X10^3/uL RBC 2.99 L (4.5-5.9) X10^6/uL Hgb 9.9 L (13.5-17.5) g/dL Hct 29.6 L (41-53) % MCV 98.8 (80-100) fL MCH 33.1 (26-34) PG MCHC 33.5 (30-36) % RDW 13.4 (11.6-14.8) % Plt Count TNP Neut % (Auto) 56.4 (50-75) % Lymph % (Auto) 32.4 (25-40) % Chester % (Auto) 8.7 (3-14) % Eos % (Auto) 1.2 L (2-4) % Baso % (Auto) 1.3 (0-2) % Neut # (Auto) 5800 (3568-1797) /uL Lymph # (Auto) 3300 (9027-7324) /uL Chester # (Auto) 900 (0-900) /uL Eos # (Auto) 100 (0-450) /uL Baso # (Auto) 100 (0-100) /uL Sodium (137-145) mmol/L Potassium (3.4-5.1) mmol/L Chloride (98-107) mmol/L Carbon Dioxide (22-32) mmol/L BUN (9-20) mg/dL Creatinine (0.66-1.25) mg/dL Estimated GFR (>60) mL/min BUN/Creatinine Ratio (6-22) Glucose (70-100) mg/dL Calcium (8.4-10.2) mg/dL Total Bilirubin (0.2-1.3) mg/dL AST (17-59) IU/L ALT (<50) IU/L Alkaline Phosphatase (38-126) U/L Total Creatine Kinase Cancelled CK-MB (CK-2) Cancelled CK-MB (CK-2) Rel Index Cancelled Troponin I Cancelled Total Protein (6.3-8.2) g/dL Albumin (3.5-5.0) g/dL Globulin (1.7-4.1) g/dL Albumin/Globulin Ratio (1.0-2.8) Prolactin (3.7-17.9) ng/mL U Opiates 300ng/mL cut Negative (Negative) Ur Oxycodone Screen Negative (Negative) Urine Methadone Screen Negative (Negative) Ur Barbiturates Screen Negative (Negative) U Tricyclic Antidepress Negative (Negative) Ur Phencyclidine Scrn Negative (Negative) Ur Amphetamines Screen Negative (Negative) U Methamphetamines Scrn Negative (Negative) Ur MDMA Scrn (Ecstasy) Negative (Negative) U Benzodiazepines Scrn Negative (Negative) Urine Cocaine Screen Negative (Negative) U Marijuana (THC) Screen Negative (Negative) 05/19/22 05/19/22 Range/Units 21:59 23:37 WBC (4.5-11.0) X10^3/uL RBC (4.5-5.9) X10^6/uL Hgb (13.5-17.5) g/dL Hct (41-53) % MCV (80-100) fL MCH (26-34) PG MCHC (30-36) % RDW (11.6-14.8) % Plt Count Neut % (Auto) (50-75) % Lymph % (Auto) (25-40) % Chester % (Auto) (3-14) % Eos % (Auto) (2-4) % Baso % (Auto) (0-2) % Neut # (Auto) (2422-8411) /uL Lymph # (Auto) (8439-8645) /uL Chester # (Auto) (0-900) /uL Eos # (Auto) (0-450) /uL Baso # (Auto) (0-100) /uL Sodium 144 (137-145) mmol/L Potassium 4.1 (3.4-5.1) mmol/L Chloride 108 H (98-107) mmol/L Carbon Dioxide 29 (22-32) mmol/L BUN 12 (9-20) mg/dL Creatinine 0.73 (0.66-1.25) mg/dL Estimated GFR > 60 (>60) mL/min BUN/Creatinine Ratio 16.4 (6-22) Glucose 89 (70-100) mg/dL Calcium 9.9 (8.4-10.2) mg/dL Total Bilirubin 0.3 (0.2-1.3) mg/dL AST 29 (17-59) IU/L ALT 24 (<50) IU/L Alkaline Phosphatase 105 (38-126) U/L Total Creatine Kinase 168 231 H CK-MB (CK-2) 3.31 H 4.40 H CK-MB (CK-2) Rel Index 2.0 1.9 Troponin I < 0.012 < 0.012 Total Protein 7.0 (6.3-8.2) g/dL Albumin 3.6 (3.5-5.0) g/dL Globulin 3.4 (1.7-4.1) g/dL Albumin/Globulin Ratio 1.1 (1.0-2.8) Prolactin 22.0 H (3.7-17.9) ng/mL U Opiates 300ng/mL cut (Negative) Ur Oxycodone Screen (Negative) Urine Methadone Screen (Negative) Ur Barbiturates Screen (Negative) U Tricyclic Antidepress (Negative) Ur Phencyclidine Scrn (Negative) Ur Amphetamines Screen (Negative) U Methamphetamines Scrn (Negative) Ur MDMA Scrn (Ecstasy) (Negative) U Benzodiazepines Scrn (Negative) Urine Cocaine Screen (Negative) U Marijuana (THC) Screen (Negative) Imaging Data CT scan - head: Radiologist's Impression: [address] [address] [address] Scan Report Signed Patient: Da Barclay MR#: [id number] : 2000 Acct:[id number] Age/Sex: 21 / M Date of Service: 05/19/22 Loc: ED Accession Number: [id number] ?? Procedure: CT head/brain wo con Ordering Provider: Catrachita Haywood D.O. PROCEDURE:? CT HEAD/BRAIN WO CON ? INDICATIONS:? seizure hx of aneurysm with craniotomy ? TECHNIQUE:? Noncontrast 4.5 mm thick angled axial sections acquired from the foramen magnum to the vertex, with coronal and sagittal reformats.? For radiation dose reduction, the following was used:? automated exposure control, adjustment of mA and/or kV according to patient size.? ? COMPARISON:? Located Within [facility], CT, CT HEAD WITHOUT CONTRAST, 03/03/2022, 11:14. ? FINDINGS:? Image quality:? Excellent.? ? CSF spaces:? Basal cisterns are patent.? No extra-axial fluid collections.? Ventricles are stable in size and shape, mildly STIR distorted at the right temporal region by encephalomalacia from prior aneurysm repair and craniotomy..? ? Brain:? No midline shift.? No intracranial masses or hemorrhage.? Davis-white matter interface is normal.? ? Skull and face:? Calvarium and visualized facial bones are intact, without suspicious lesions.? ? Sinuses:? Visualized sinuses and mastoids are clear.? ? IMPRESSION:? 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 No sign of new hemorrhage. ? ? Dictated by: Marco A Dewey M.D. on 05/19/2022 at 20:49 ? ? Approved by: Marco A Dewey M.D. on 05/19/2022 at 20:51 Chest x-ray: Radiologist's Impression: Da Barclay MR#: [id number] : 2000 Acct:[id number] Age/Sex: 21 / M Date of Service: 05/19/22 Loc: ED Accession Number: [id number] ?? Procedure: XR chest 1V Ordering Provider: Catrachita Haywood D.O. PROCEDURE:? XR CHEST 1V ? INDICATIONS:? chest pain ? TECHNIQUE:? One view of the chest was acquired.? ? COMPARISON:? None. ? FINDINGS:? ? Surgical changes and devices:? None.? ? Lungs and pleura:? Lungs are clear.? No pleural effusions or pneumothorax.? ? Mediastinum:? Mediastinal contours appear normal.? Heart size is normal.? ? Bones and chest wall:? No suspicious bony lesions.? Overlying soft tissues appear unremarkable.? ? IMPRESSION:? Normal for age, source of current chest pain symptoms is not seen. ? ? Dictated by: Marco A Dewey M.D. on 05/19/2022 at 20:58 ? ? CT scan - chest: Radiologist's Impression: Signed Patient: Da Barclay MR#: [id number] : 2000 Acct:[id number] Age/Sex: 21 / M Date of Service: 05/20/22 Loc: ED Accession Number: [id number] ?? Procedure: CT angio chest abdomen pelvis Ordering Provider: Catrachita Haywood D.O. PROCEDURE:? CT ANGIO CHEST ABDOMEN PELVIS ? INDICATIONS:? chest pain, hx clots, dialysis, transplant ? TECHNIQUE:? Precontrast 5 mm thick sections acquired from the lung apices to the iliac crests.? After the administration of intravenous contrast, 2.5 mm thick sections again acquired from the lung apices to the iliac crests.? Maximum intensity projection (MIP) oblique sagittal and coronal reformats were then acquired.? For radiation dose reduction, the following was used:? automated exposure control.? ? COMPARISON:? None. ? FINDINGS:? Image quality:? Excellent.? ? AORTA:? Noncontrast images demonstrate no evidence of intramural hematoma.? The aorta is normal in caliber and contour without intimal flaps to suggest dissection.? There is conventional branching of the aortic arch.? The visualized great vessels are normal in caliber and appear patent.? The celiac, superior mesenteric, and inferior mesenteric arteries are patent.? There are single renal arteries bilaterally which also appear patent.? The common, external, and internal iliac arteries appear patent.? The common femoral and visualized proximal superficial femoral arteries appear patent. ? CHEST:? Lower Neck: No lymphadenopathy by size criteria. Thyroid:? Visualized thyroid demonstrates no discrete nodules. Axillae: No lymphadenopathy by size criteria. Chest Wall:? Unremarkable.? Bones: Visualized osseous structures demonstrate no suspicious lesions. ? Lungs and Airways:? There are multiple clustered pulmonary nodules predominantly within the lower lobes.? There is associated bronchiectasis as well as irregular peribronchial consolidation in the left lower lobe.? Within the right upper lobe, there are small clustered pulmonary nodules.? Wall? The trachea and central airways are patent. Pleura: No pneumothorax or pleural effusions.? ? Heart: Heart size is normal.? No pericardial effusion. Thoracic Vessels: The pulmonary arteries demonstrate no filling defects to suggest central pulmonary embolism. Mediastinum and Ember: No lymphadenopathy by size criteria.? There is residual thymus within the anterior mediastinum. Esophagus: No wall thickening. No hiatal hernia. ? Lung bases:? Unremarkable.? ? Heart:? Heart is normal in size. ? ? ABDOMEN: Liver:? No mass lesion. Gallbladder:? Within normal limits without calcified gallstones.? ? Biliary ducts:? No biliary ductal dilatation.? ? Pancreas:? Unremarkable.? ? Spleen:? Normal in size.? ? Adrenal Glands:? No adrenal nodules.? ? Kidneys and Ureters:? There is a small atrophic [place] left kidney.? The right kidney is absent.? There is a transplant kidney in the right abdomen.? Mild right perinephric fat stranding and minimal fluid is present. ? Stomach and Bowel:? Stomach, small bowel loops, and colon are normal in caliber and wall thickness.? There are bowel sutures in the rectosigmoid colon.? Peritoneum:? No abnormal intraperitoneal fluid.? No free air.? ? Ventral Wall: ? No hernia.? Abdominal Nodes:? No retroperitoneal or mesenteric adenopathy by size criteria.? Vessels:? Aorta and inferior vena cava are normal in size.? ? PELVIS: Pelvic Organs:? Unremarkable.? ? Bladder:? Unremarkable.? ? Pelvic Nodes: No enlarged lymph nodes.? Miscellaneous: No inguinal hernias are seen. ? ? ? Bones:? Visualized osseous structures demonstrate diffuse osteopenia.? There are multiple mild compression deformities including a mild anterior wedge deformity of the T6 vertebral body, mild superior endplate compression deformity of the L2 vertebral body, and minimal endplate compression deformities of the L3, L4, and L5 vertebral bodies. ? IMPRESSION:? ? 1. No evidence of aortic dissection or acute aortic injury.? ? 2. No evidence of central pulmonary embolism. ? 3. Bibasilar bronchiectasis with small clustered nodules predominantly within the right lower lobe and left upper lobe.? The constellation of findings are suggestive of atypical pneumonia secondary to aspiration. ? 4. Transplant kidney demonstrated in the right hemiabdomen.? There is associated nonspecific perinephric stranding.? Differential includes sequelae of infection or rejection along other etiologies.? Recommend correlation clinically. ? ? ? Dictated by: Da Proctor M.D. on 05/20/2022 at 1:23 ? ? ECG Data Interpretation: EKG 1. S sinus rhythm rate 45 p.r. interval 154 QRS [address]-elevation in 2 [address] depression and reciprocal leads T-wave inversion noted in AVR and V1 no priors to compare EKG 2. Is persistent ST changes without ST depression previous EKG is received from 2018 and it does appear new. MDM Narrative Medical decision making narrative: [facility]. 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 Today presenting with chest discomfort and seizure. Not uncommon for him to have seizures after chest severe pain. Troponins are negative. EKG does show some ST elevation but no ST depression benign early positional repolarization vs STEMI although extremely uncommon for 21-year-old have STEMI patient is a very complicated medical patient. Cardiology was consulted reviewed EKGs at this time stated likely early repolarization. Been chest pain-free while emergency department. He did have a seizure however no further seizure activity. Dad at bedside. CT angio negative. Dad again reports no known history of coronary artery disease although he is at risk. His patient has been chest pain free follow-up as outpatient possibly due to stress. Discharge Plan Departure Patient Disposition: Home Clinical Impression: Atypical chest pain, Breakthrough seizure Instructions: DI for Seizure Disorder -- Adult, DI for Atypical Chest Pain Activity Restrictions/Additional Instructions: *You have been diagnosed with atypical chest pain, breakthrough seizure *What to do: At this time blood work scans and emergency department workup overall reassuring. However please follow-up with your neurologist in regards to breakthrough seizure *Continue to take medications as directed Please take all night medications as soon as she got home and resume normal schedule tomorrow *Follow up with your primary care provider in 2-3 days or call [phone] *Return to ER if you should have seizure, chest pain shortness of breath or any new, worsening or concerning symptoms Prescriptions: No Action sevelamer HCl 800 mg tablet 800 mg PO TID enoxaparin 300 mg/3 mL solution subcut escitalopram oxalate 5 mg tablet 5 mg PO DAILY fluticasone propionate [Allergy Relief (fluticasone)] 50 mcg/actuation spray,suspension 2 spray NASAL DAILY -Toddler Multivitamin Drops PO albuterol sulfate [Ventolin HFA] 90 mcg/actuation HFA aerosol inhaler 4 puff inhalation Q4-6H PRN (Reason: Cough or wheeze) Qty: 8.5 4RF sirolimus [Rapamune] 1 MG/1 ML solution 0.25 mg PO Qty: 0 prednisone 10 MG tablet 10 mg PO Qty: 0 atovaquone [Mepron] 750 MG/5 ML suspension 8.5 ml PO Qty: 0 posaconazole [Noxafil] 100 MG tablet,delayed release (DR/EC) 400 mg PO Qty: 0 [WUV134] 8 ml Qty: 0 azithromycin [Zithromax Z-Papa] 250 MG tablet 250 mg PO SEE INSTRUCTIONS Qty: 0 montelukast [Singulair] 10 MG tablet 10 mg PO QDAY Qty: 0 fluticasone propion-salmeterol [Advair Diskus] 100 MCG/50 MCG blister with device 1 puff BID Qty: 0 Atrovent HFA 12.9 GM HFA aerosol inhaler 2 puff INH TID Qty: 0 sodium chloride 0.9 % 10 ML solution 5 ml INH BID Qty: 0 omeprazole 20 MG capsule,delayed release(DR/EC) 20 mg PO QDAY Qty: 0 Zenpep 10,000 UNITS capsule,delayed release(DR/EC) 2 ecc PO AC Qty: 0 clonidine HCl 0.1 MG tablet 0.2 mg PO Qty: 0 amlodipine [Norvasc] 5 MG tablet 5 mg PO BID Qty: 0 MULTIVITAMIN 2 tab PO QDAY Qty: 0 [VIACTIV CA=D] 1 tab TID Qty: 0 [BICITRA] 30 ml PO TID Qty: 0 potassium chloride [Klor-Con 8] 8 MEQ tablet extended release 3.75 ml PO TID Qty: 0 cholecalciferol (vitamin D3) 10,000 UNIT tablet 10,000 unit PO Qty: 0 loratadine [Claritin] 10 MG tablet 10 mg PO QDAYP PRNQty: 0 lorazepam 1 MG tablet 1 mg PO QID Qty: 0 OMEGA-3 FATTY ACIDS (FISH OIL) 6.25 ml PO BID Qty: 0 ondansetron 4 MG tablet,disintegrating 5 ml PO TID Qty: 0 oxycodone [OxyContin] 40 MG tablet,oral only,ext.rel.12 hr 4 ml PO QID Qty: 0 [D5W/NA/MAG/K] 1,500 ml IV SEE INSTRUCTIONS Qty: 0 Aranesp (in polysorbate) 100 MCG/0.5 ML syringe 0.1 mg IJ QWEEKMO Qty: 0 Nplate 250 MCG recon soln 80 mcg SQ QWEEK Qty: 0 simethicone [Gas Relief 80 (simethicone)] 80 mg tablet,chewable 80 mg PO BID Qty: 120 1RF calcium carbonate [Calcium Antacid] 200 mg calcium (500 mg) tablet,chewable See Rx Instructions .ROUTE .COMPLEX Qty: 90 4RF Dose Instruction: TAKE 2 TABLETS BY MOUTH THREE TIMES DAILY FOR INDIGESTION Rx Instructions: TAKE 2 TABLETS BY MOUTH THREE TIMES DAILY FOR INDIGESTION lorazepam 2 mg/mL concentrate 2 mg sublingual .COMPLEX PRN (Reason: seizure) Qty: 30 0RF Rx Instructions: 1 mL at onset of seizure. Take another 1 ml after two minutes if still seizing. hydromorphone 2 mg tablet See Rx Instructions .ROUTE .COMPLEX Qty: 152 0RF Dose Instruction: TAKE 3 TABLETS (3 X 2 MG) BY MOUTH EVERY 3 HOURS NEEDED FOR PAIN Rx Instructions: TAKE 3 TABLETS (3 X 2 MG) BY MOUTH EVERY 3 HOURS NEEDED FOR PAIN methadone 10 mg tablet See Rx Instructions .ROUTE .COMPLEX Qty: 60 0RF Dose Instruction: TAKE 1 TABLET BY MOUTH EVERY 12 HOURS FOR PAIN Rx Instructions: TAKE 1 TABLET BY MOUTH EVERY 12 HOURS FOR PAIN gabapentin 300 mg capsule See Rx Instructions .ROUTE .COMPLEX Qty: 90 2RF Dose Instruction: TAKE 1 CAPSULE BY MOUTH THREE TIMES DAILY Rx Instructions: TAKE 1 CAPSULE BY MOUTH THREE TIMES DAILY oxcarbazepine 150 mg tablet See Rx Instructions .ROUTE .COMPLEX Qty: 240 2RF Dose Instruction: TAKE 4 TABLETS BY MOUTH EVERY MORNING AND TAKE 3 TABLETS BY MOUTH EVERY EVENING Rx Instructions: TAKE 4 TABLETS BY MOUTH EVERY MORNING AND TAKE 4 TABLETS BY MOUTH EVERY EVENING levetiracetam 500 mg tablet See Rx Instructions .ROUTE .COMPLEX Qty: 120 2RF Dose Instruction: TAKE 2 TABLETS BY MOUTH (1000 MG) TWICE DAILY FOR SEIZURES Rx Instructions: TAKE 2 TABLETS BY MOUTH (1000 MG) TWICE DAILY FOR SEIZURES trazodone 100 mg tablet See Rx Instructions .ROUTE .COMPLEX Qty: 30 0RF Dose Instruction: TAKE 1 TABLET BY MOUTH BEDTIME Rx Instructions: TAKE 1 TABLET BY MOUTH BEDTIME oxcarbazepine 600 mg tablet 600 mg PO BID Qty: 60 0RF hydrocortisone 10 mg tablet See Rx Instructions .ROUTE .COMPLEX Qty: 75 0RF Dose Instruction: TAKE 1/2 TABLET EVERY AM, 1/2 TABLET AT NOON AND 1/4 TABLET EVERY EVENING FOR ADRENAL SUPPORT Rx Instructions: TAKE 1/2 TABLET EVERY AM, 1/2 TABLET AT NOON AND 1/4 TABLET EVERY EVENING FOR ADRENAL SUPPORT epinephrine 0.3 mg/0.3 mL auto-injector 0.3 mg IM Q5-15M PRN (Reason: anaphylaxis) Qty: 2 2RF Rx Instructions: do not exceed 3 doses per episode epinephrine [EpiPen 2-Papa] 0.3 mg/0.3 mL auto-injector 0.3 mg IM Q5-15M PRN (Reason: anaphylaxis) Qty: 2 0RF Rx Instructions: do not exceed 3 doses per episode Referrals: Yordy Lantigua MD [Primary Care Provider] - Visit Report Forms: Patient Portal/API
[2022-05-19 23:58] LABS: Creatine Kinase 231 U/L (55-170)
[2022-05-20] VITALS: PULSE 47; RESP 29
--- NOTE | 2022-05-20 00:01 | DI.CT.S_ITS ---
PROCEDURE: CT ANGIO CHEST ABDOMEN PELVIS INDICATIONS: chest pain, hx clots, dialysis, transplant TECHNIQUE: Precontrast 5 mm thick sections acquired from the lung apices to the iliac crests. After the administration of intravenous contrast, 2.5 mm thick sections again acquired from the lung apices to the iliac crests. Maximum intensity projection (MIP) oblique sagittal and coronal reformats were then acquired. For radiation dose reduction, the following was used: automated exposure control. COMPARISON: None. FINDINGS: Image quality: Excellent. AORTA: Noncontrast images demonstrate no evidence of intramural hematoma. The aorta is normal in caliber and contour without intimal flaps to suggest dissection. There is conventional branching of the aortic arch. The visualized great vessels are normal in caliber and appear patent. The celiac, superior mesenteric, and inferior mesenteric arteries are patent. There are single renal arteries bilaterally which also appear patent. The common, external, and internal iliac arteries appear patent. The common femoral and visualized proximal superficial femoral arteries appear patent. CHEST: Lower Neck: No lymphadenopathy by size criteria. Thyroid: Visualized thyroid demonstrates no discrete nodules. Axillae: No lymphadenopathy by size criteria. Chest Wall: Unremarkable. Bones: Visualized osseous structures demonstrate no suspicious lesions. Lungs and Airways: There are multiple clustered pulmonary nodules predominantly within the lower lobes. There is associated bronchiectasis as well as irregular peribronchial consolidation in the left lower lobe. Within the right upper lobe, there are small clustered pulmonary nodules. Wall The trachea and central airways are patent. Pleura: No pneumothorax or pleural effusions. Heart: Heart size is normal. No pericardial effusion. Thoracic Vessels: The pulmonary arteries demonstrate no filling defects to suggest central pulmonary embolism. Mediastinum and Ember: No lymphadenopathy by size criteria. There is residual thymus within the anterior mediastinum. Esophagus: No wall thickening. No hiatal hernia. Lung bases: Unremarkable. Heart: Heart is normal in size. ABDOMEN: Liver: No mass lesion. Gallbladder: Within normal limits without calcified gallstones. Biliary ducts: No biliary ductal dilatation. Pancreas: Unremarkable. Spleen: Normal in size. Adrenal Glands: No adrenal nodules. Kidneys and Ureters: There is a small atrophic [place] left kidney. 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 Mild right perinephric fat stranding and minimal fluid is present. Stomach and Bowel: Stomach, small bowel loops, and colon are normal in caliber and wall thickness. There are bowel sutures in the rectosigmoid colon. Peritoneum: No abnormal intraperitoneal fluid. No free air. Ventral Wall: No hernia. Abdominal Nodes: No retroperitoneal or mesenteric adenopathy by size criteria. Vessels: Aorta and inferior vena cava are normal in size. PELVIS: Pelvic Organs: Unremarkable. Bladder: Unremarkable. Pelvic Nodes: No enlarged lymph nodes. Miscellaneous: No inguinal hernias are seen. Bones: Visualized osseous structures demonstrate diffuse osteopenia. There are multiple mild compression deformities including a mild anterior wedge deformity of the T6 vertebral body, mild superior endplate compression deformity of the L2 vertebral body, and minimal endplate compression deformities of the L3, L4, and L5 vertebral bodies. IMPRESSION: 1. No evidence of aortic dissection or acute aortic injury. 2. No evidence of central pulmonary embolism. 3. Bibasilar bronchiectasis with small clustered nodules predominantly within the right lower lobe and left upper lobe. The constellation of findings are suggestive of atypical pneumonia secondary to aspiration. 4. 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 There is associated nonspecific perinephric stranding. Differential includes sequelae of infection or rejection along other etiologies. Recommend correlation clinically. Dictated by: Da Proctor M.D. on 05/20/2022 at 1:23 Approved by: Da Proctor M.D. on 05/20/2022 at 1:32
[2022-05-20 00:11] LABS: Troponin I < 0.012 ng/mL (0.01-0.034)
[2022-05-20 00:13] LABS: CKMB % Relative Index 1.9 % (1.5-5.0)
[2022-05-20] MEDS: diphenhydrAMINE 50 MG/ML VIAL 25 MG IV (00:18)
[2022-05-20 00:30] VITALS: PULSE 46; RESP 10; O2SAT 99
[2022-05-20 01:00] VITALS: PULSE 53; RESP 26; O2SAT 99
[2022-05-20 01:30] VITALS: PULSE 48; RESP 25; O2SAT 100
[2022-05-20 02:00] VITALS: PULSE 51
[2022-05-20 02:10] VITALS: BP 115/67
== END 2022-05-20 02:15 | disposition home or self-care (01) ==
PROVIDERS: Emergency Provider Emergency Medicine; PCP Pediatrics Pediatric Nephrology
DX: R07.89 Other chest pain (principal); G40.909 Epilepsy, unspecified, not intractable, without status epilepticus
CPT/HCPCS: 70450; 71045; 71275; 74174; 80053; 80305; 82550; 82553; 84146; 84484; 85025; 93005; 93010; 96361; 96374; 99284; J1200; Q9967

== ENCOUNTER 2022-10-07 15:08 | Emergency (ER) | payer OTHER, MEDICAID, SELFPAY ==
[2022-10-07] VITALS (9 sets, daily range): BP systolic 108–138; BP diastolic 59–82; PULSE 47–100; RESP 18–24; TEMP 36.4; O2SAT 97–100; BMI 22.4
--- NOTE | 2022-10-07 | DI.CT.S_ITS ---
PROCEDURE: CT venogram HEAD INDICATIONS: 21-year-old male with left-sided vision loss and history of decompressive right craniectomy status post aneurysm TECHNIQUE: Precontrast 4.5 mm thick angled axial sections acquired from the foramen magnum to the vertex. After the administration of intravenous contrast, 1 mm thick sections acquired from the skull base to the vertex after an appropriate venous phase delay. Postcontrast 4.5 mm thick sections then re-acquired from the foramen magnum to the vertex. [id number] (MIP) reformats were acquired of the venous structures. For radiation dose reduction, the following was used: automated exposure control, adjustment of mA and/or kV according to patient size. COMPARISON: None. FINDINGS: Image quality: Excellent. Venous structures: Sagittal, straight, transverse, and sigmoid sinuses appear patent. CSF spaces: Ventricles are normal in size and shape. Basal cisterns are patent. No extra-axial fluid collections. Brain: Cystic encephalomalacia and gliosis noted on the right with volume loss, unchanged from the priors. Associated right cerebral peduncle atrophy. Decompressive craniectomy present. No intracranial hemorrhage or midline shift. Old lacunar infarct noted in the central mauro. Skull and face: Calvarium and facial bones appear intact, without suspicious lesions. Sinuses: Visualized sinuses and mastoids are clear. Incidental hypoplastic/aplastic frontal and sphenoid sinus. Minimal anterior right ethmoid mucosal thickening. Hypo pneumatization of the right maxillary sinus IMPRESSION: Unremarkable CT venogram of the head. No evidence of dural venous thrombosis Approved by: Jah Martinez M.D. on 10/07/2022 at 16:18
--- NOTE | 2022-10-07 15:22 | DI.CT.S_ITS ---
PROCEDURE: CT STROKE INDICATIONS: lt eye vision loss TECHNIQUE: Noncontrast 4.5 mm thick angled axial sections acquired from the foramen magnum to the vertex, with coronal reformats. For radiation dose reduction, the following was used: automated exposure control, adjustment of mA and/or kV according to patient size. COMPARISON: [facility], CT, CT HEAD/BRAIN WO CON, 05/19/2022, 20:30. FINDINGS: Image quality: Excellent. CSF spaces: Basal cisterns are patent. No extra-axial fluid collections. Ventricles are normal in size and shape. Brain: No midline shift. No intracranial masses or hemorrhage. Davis-white matter interface is normal. Large chronic region of encephalomalacia within the right superior frontal parietal lobe junction extending into the right temporal lobe. Small chronic infarct within the mauro.. Skull and face: Right frontoparietal craniectomy, as before. Sinuses: Visualized sinuses and mastoids are clear. IMPRESSION: 1. Postsurgical sequelae. 2. No acute intracranial abnormality. 3. Findings discussed with Dr. James on 10/07/2022 at 15:40 hours. This study fulfills neurological imaging criteria for inclusion or exclusion of acute stroke therapies based on available published neurological imaging guidelines. Dictated by: Idalia Mckeon M.D. on 10/07/2022 at 15:38 Approved by: Idalia Mckeon M.D. on 10/07/2022 at 15:41
--- NOTE | 2022-10-07 15:24 | ED.NEUROSD ---
HPI - Neuro Symptoms/Deficit General Chief Complaint: Neuro Symptoms/Deficit Stated Complaint: loss of vision left eye, hx of strokes Time Seen by Provider: 10/07/22 15:22 History of Present Illness HPI Narrative: Code stroke called at 3:20 p.m.. Last well known 1:28 p.m.. Patient brought in by mother for sudden onset loss of vision only in the left eye. Has history stroke 2 years ago left him with left-sided weakness. This is not new. Patient states has chronic headache and that is not new. No slurred speech. No facial droop. Patient has never had vision loss before. Patient has history of aplastic anemia. Has spontaneous bleed in the right side of the brain which required craniotomy. This left him with left-sided weakness. Patient also had another stroke intraoperatively for intestinal surgery/polypectomy. Patient brought from triage room to CT imaging. Patient is awake alert oriented x4. Related Data Home Medications Medication Instructions Recorded Confirmed MULTIVITAMIN 2 tab PO QDAY ##0 03/17/16 10/18/20 OMEGA-3 FATTY ACIDS (FISH OIL) 6.25 ml PO BID ##0 03/17/16 10/18/20 [BICITRA] 30 ml PO TID ##0 03/17/16 10/18/20 [ESF538] 8 ml ##0 03/17/16 10/18/20 [D5W/NA/MAG/K] 1,500 ml IV SEE INSTRUCTIONS ##0 03/17/16 10/18/20 [VIACTIV CA=D] 1 tab TID ##0 03/17/16 10/18/20 amlodipine 5 mg tablet (Norvasc) 5 mg PO BID ##0 03/17/16 10/18/20 atovaquone 750 mg/5 mL oral 8.5 ml PO ##0 03/17/16 10/18/20 suspension (Mepron) azithromycin 250 mg tablet 250 mg PO SEE INSTRUCTIONS ##0 03/17/16 10/18/20 (Zithromax Z-Papa) cholecalciferol (vitamin D3) 250 10,000 unit PO ##0 03/17/16 10/18/20 mcg (10,000 unit) tablet clonidine HCl 0.1 mg tablet 0.2 mg PO ##0 03/17/16 10/18/20 darbepoetin amina in polysorbat 100 0.1 mg IJ QWEEKMO ##0 03/17/16 10/18/20 mcg/0.5 mL in polysorbate injection syringe (Aranesp) fluticasone 100 mcg-salmeterol 50 1 puff BID ##0 03/17/16 10/18/20 mcg/dose blistr powdr for inhalation (Advair Diskus) ipratropium bromide 17 2 puff INH TID ##0 03/17/16 10/18/20 mcg/actuation HFA aerosol inhaler (Atrovent HFA) fejvnr-grybhsvh-acvemsl 2 ecc PO AC ##0 03/17/16 10/18/20 10,000-34,000-55,000 unit capsule,delayed rel (Zenpep) loratadine 10 mg tablet (Claritin) 10 mg PO QDAYP PRN #0 tabs 03/17/16 10/18/20 lorazepam 1 mg tablet 1 mg PO QID ##0 03/17/16 10/18/20 montelukast 10 mg tablet 10 mg PO QDAY ##0 03/17/16 10/18/20 (Singulair) omeprazole 20 mg capsule,delayed 20 mg PO QDAY ##0 03/17/16 10/18/20 release ondansetron 4 mg disintegrating 5 ml PO TID ##0 03/17/16 10/18/20 tablet oxycodone 40 mg tablet,crush 4 ml PO QID ##0 03/17/16 10/18/20 resistant,extended release 12 hr (OxyContin) posaconazole 100 mg tablet,delayed 400 mg PO ##0 03/17/16 10/18/20 release (Noxafil) potassium chloride 8 mEq 3.75 ml PO TID ##0 03/17/16 10/18/20 tablet,extended release (Klor-Con) prednisone 10 mg tablet 10 mg PO #0 tabs 03/17/16 10/18/20 romiplostim 250 mcg subcutaneous 80 mcg SQ QWEEK ##0 03/17/16 10/18/20 solution (Nplate) sirolimus 1 mg/mL oral solution 0.25 mg PO ##0 03/17/16 10/18/20 (Rapamune) sodium chloride 0.9 % 5 ml INH BID ##0 03/17/16 10/18/20 enoxaparin 300 mg/3 mL SUBCUT 09/15/19 10/18/20 subcutaneous solution escitalopram oxalate 5 mg tablet 5 mg PO DAILY 09/15/19 10/18/20 fluticasone propionate 50 2 spray intranasal DAILY 09/15/19 10/18/20 mcg/actuation nasal spray,suspension (Allergy Relief (fluticasone)) pediatric multivitamin no.165 drop PO 09/15/19 10/18/20 (-Toddler Multivitamin oral drops) sevelamer HCl 800 mg tablet 800 mg PO TID 09/15/19 10/18/20 Previous Rx's Medication Instructions Recorded albuterol sulfate 90 mcg/actuation 4 puff inhalation Q4-6H PRN Cough 05/03/20 aerosol inhaler (Ventolin HFA) or wheeze #8.5 grams simethicone 80 mg chewable tablet 80 mg PO BID #120 tabs 06/25/20 (Gas Relief 80 (simethicone)) calcium carbonate 200 mg calcium See Rx Instructions .Route 07/30/20 (500 mg) chewable tablet (Calcium .COMPLEX #90 caps Antacid) lorazepam 2 mg/mL oral concentrate 2 mg sublingual .COMPLEX PRN 12/28/20 seizure #30 mL hydromorphone 2 mg tablet See Rx Instructions .Route 01/28/21 .COMPLEX #152 tabs methadone 10 mg tablet See Rx Instructions .Route 02/07/21 .COMPLEX #60 tabs gabapentin 300 mg capsule See Rx Instructions .Route 02/25/21 .COMPLEX #90 caps epinephrine 0.3 mg/0.3 mL 0.3 mg (0.3 mL) IM Q5-15M PRN 03/18/21 injection, auto-injector anaphylaxis #2 ea oxcarbazepine 150 mg tablet See Rx Instructions .Route 05/31/21 .COMPLEX #240 tabs levetiracetam 500 mg tablet See Rx Instructions .Route 06/14/21 .COMPLEX #120 tabs oxcarbazepine 600 mg tablet 600 mg PO BID #60 tabs 07/12/21 trazodone 100 mg tablet See Rx Instructions .Route 07/12/21 .COMPLEX #30 tabs hydrocortisone 10 mg tablet See Rx Instructions .Route 08/14/21 .COMPLEX #75 tabs epinephrine 0.3 mg/0.3 mL 0.3 mg (0.3 mL) IM Q5-15M PRN 02/06/22 injection, auto-injector (EpiPen anaphylaxis #2 ea 2-Papa) Allergies Allergy/AdvReac Type Severity Reaction Status Date / Time bee venom protein (honey bee) Allergy Severe Anaphylaxis Verified 10/07/22 17:56 chlorhexidine [CHLORHEXIDINE] Allergy Severe ANAPHLAXIS Verified 10/07/22 17:56 clocinizine Allergy Severe Anaphylaxis Verified 10/07/22 17:56 peppermint Allergy Severe Anaphylaxis Verified 10/07/22 17:56 Sulfa (Sulfonamide Allergy Severe Anaphylaxis Verified 10/07/22 17:56 Antibiotics) amphotericin B Allergy Unknown Verified 10/07/22 17:56 [From AMBISOME] ethyl alcohol [ETHYL ALCOHOL] Allergy Unknown Verified 10/07/22 17:56 mannitol [MANNITOL] Allergy Unknown Verified 10/07/22 17:56 vancomycin [VANCOMYCIN] Allergy Unknown Verified 10/07/22 17:56 Review of Systems Review of Systems Narrative: GENERAL: negative chills, fatigue, malaise, fever, sweats. HEENT: negative sinus pain, ear pain, sore throat RESPIRATORY: negative dyspnea, cough CARDIOVASCULAR: negative chest pain, palpitations GASTROINTESTINAL: negative nausea, vomiting, abdominal pain : negative dysuria, frequency, hematuria MUSCULOSKELETAL: negative muscle or bony pain SKIN: negative rash, skin lesions NEUROLOGIC: negative new weakness, numbness, positive vision loss ROS Unobtainable: All systems reviewed & are unremarkable except as noted in HPI and below Patient History Medical History Aplastic anemia 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 Intracranial hemorrhage Status post craniectomy Status post total colectomy Social History Smoking Status: Never smoker Smoking Status: Never smoker alcohol intake frequency: 0-2 drinks per day Substance Use Type: does not use Exam Narrative Exam Narrative: GENERAL: in no distress, not toxic not dyspneic HEAD: Normocephalic. EYES: Pupils equal round pupils are reactive directly and indirectly bilaterally. On fundus scope retinal reflex noted in both eyes. Patient can not see out of left eye, not able to perceive light. ENT: Mucous membranes moist. NECK: Trachea midline. CARDIOVASCULAR: Regular rate and rhythm without murmurs RESPIRATORY: Clear to auscultation. Breath sounds equal bilaterally. No wheezes, rales, or rhonchi. GASTROINTESTINAL: Abdomen soft, non-tender EXTREMITIES: No gross deformities. BACK: No flank tenderness. NEURO: AOx4. Clear speech no facial droop. There is complete loss of left orbital vision. Patient unable to see anything out of the left eye. It is painless. Patient has residual left arm left leg weakness which is not new from previous stroke. 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 Light touch intact bilateral face SKIN: Warm and dry PSYCH: Not anxious, is cooperative Initial Vital Signs Initial Vital Signs: Vital Signs Temperature 97.6 F 10/07/22 15:18 Pulse Rate 100 H 10/07/22 15:18 Respiratory Rate 22 10/07/22 15:18 Blood Pressure 120/68 10/07/22 15:18 Pulse Oximetry 100 10/07/22 15:18 Oxygen Delivery Method Room Air 10/07/22 15:18 Scores NIH Stroke Scale Level of Conciousness: Alert, keenly responsive Ask month/age: Answers both questions correctly. Open/close eyes, close hand: Performs both tasks correctly Best gaze horizontal: Normal Visual diaz: Complete hemianopia Facial palsy: Normal symetrical movement Left arm drift: No movement Right arm drift: No drift for full 10 sec Left leg drift: No movement Right leg drift: No drift for full 5 sec Limb ataxia: Absent Sensory on face/arms/legs: Mild to moderate sensory loss, can tell touch Best language: No aphasia, normal Dysarthria: Normal Extinction or inattention: No abnormality Total NIH Stroke scale score: 11 Course Orders Ordered: Discontinued Medications Sodium Chloride (Normal Saline 0.9%) 500 mls @ 1,000 mls/hr IV BOLUS ONE Stop: 10/07/22 17:18 Last Infusion: 10/07/22 17:42 Dose: 0 mls/hr Documented By: Admin: 10/07/22 16:57 Dose: 1,000 mls/hr Documented By: [facility] Vital Signs Vital signs: Vital Signs - 8 hr 10/07/22 15:18 10/07/22 15:58 10/07/22 16:00 Temperature 97.6 F Pulse Rate 100 H 55 L Respiratory Rate 22 22 Blood Pressure 120/68 134/82 Pulse Oximetry 100 100 Oxygen Delivery Method Room Air 10/07/22 16:00 10/07/22 16:05 10/07/22 16:05 Temperature Pulse Rate 55 L 65 Respiratory Rate 19 22 Blood Pressure 129/80 Pulse Oximetry 100 100 Oxygen Delivery Method 10/07/22 16:10 10/07/22 16:10 10/07/22 16:16 Temperature Pulse Rate 65 70 Respiratory Rate 24 20 Blood Pressure 124/73 Pulse Oximetry 100 Oxygen Delivery Method 10/07/22 16:30 10/07/22 16:30 10/07/22 17:00 Temperature Pulse Rate 47 L Respiratory Rate 18 Blood Pressure 138/79 126/75 Pulse Oximetry 100 Oxygen Delivery Method 10/07/22 17:00 10/07/22 17:30 10/07/22 17:30 Temperature Pulse Rate 51 L 48 L Respiratory Rate 24 20 Blood Pressure 108/59 L Pulse Oximetry 97 99 Oxygen Delivery Method MDM - Neuro Symptoms/Deficit Lab Data 10/07/22 15:46 10/07/22 15:46 Labs: Lab Results 10/07/22 10/07/22 10/07/22 Range/Units 15:46 15:46 15:46 WBC 8.5 (4.5-11.0) X10^3/uL RBC 3.68 L (4.5-5.9) X10^6/uL Hgb 11.4 L (13.5-17.5) g/dL Hct 34.3 L (41-53) % MCV 93.2 (80-100) fL MCH 31.1 (26-34) PG MCHC 33.3 (30-36) % RDW 14.8 (11.6-14.8) % Plt Count 198 (150-400) X10^3/uL Neut % (Auto) 61.5 (50-75) % Lymph % (Auto) 30.4 (25-40) % [place] % (Auto) 7.1 (3-14) % Eos % (Auto) 0.4 L (2-4) % Baso % (Auto) 0.6 (0-2) % Neut # (Auto) 5200 (1866-7262) /uL Lymph # (Auto) 2600 (4887-6271) /uL [place] # (Auto) 600 (0-900) /uL Eos # (Auto) 0 (0-450) /uL Baso # (Auto) 100 (0-100) /uL PT 14.1 H (10.1-12.7) SECONDS INR 1.2 (0.9-1.3) APTT 32 (26-36) SECONDS Sodium 140 (137-145) mmol/L Potassium 4.1 (3.4-5.1) mmol/L Chloride 108 H (98-107) mmol/L Carbon Dioxide 21 L (22-32) mmol/L BUN 16 (9-20) mg/dL Creatinine 1.02 (0.66-1.25) mg/dL Estimated GFR > 60 (>60) mL/min BUN/Creatinine Ratio 15.7 (6-22) Glucose 89 (70-100) mg/dL Calcium 10.3 H (8.4-10.2) mg/dL Total Bilirubin 0.7 (0.2-1.3) mg/dL AST 23 (17-59) IU/L ALT 19 (<50) IU/L Alkaline Phosphatase 128 H (38-126) U/L Total Creatine Kinase 85 (55-170) U/L CK-MB (CK-2) TNP CK-MB (CK-2) Rel Index TNP Troponin I < 0.012 (0.01-0.034) ng/mL Total Protein 8.6 H (6.3-8.2) g/dL Albumin 4.4 (3.5-5.0) g/dL Globulin 4.2 H (1.7-4.1) g/dL Albumin/Globulin Ratio 1.0 (1.0-2.8) SARS-CoV-2 (PCR) (Negative) 10/07/22 Range/Units 15:56 WBC (4.5-11.0) X10^3/uL RBC (4.5-5.9) X10^6/uL Hgb (13.5-17.5) g/dL Hct (41-53) % MCV (80-100) fL MCH (26-34) PG MCHC (30-36) % RDW (11.6-14.8) % Plt Count (150-400) X10^3/uL Neut % (Auto) (50-75) % Lymph % (Auto) (25-40) % [place] % (Auto) (3-14) % Eos % (Auto) (2-4) % Baso % (Auto) (0-2) % Neut # (Auto) (9873-3678) /uL Lymph # (Auto) (5972-2041) /uL [place] # (Auto) (0-900) /uL Eos # (Auto) (0-450) /uL Baso # (Auto) (0-100) /uL PT (10.1-12.7) SECONDS INR (0.9-1.3) APTT (26-36) SECONDS Sodium (137-145) mmol/L Potassium (3.4-5.1) mmol/L Chloride (98-107) mmol/L Carbon Dioxide (22-32) mmol/L BUN (9-20) mg/dL Creatinine (0.66-1.25) mg/dL Estimated GFR (>60) mL/min BUN/Creatinine Ratio (6-22) Glucose (70-100) mg/dL Calcium (8.4-10.2) mg/dL Total Bilirubin (0.2-1.3) mg/dL AST (17-59) IU/L ALT (<50) IU/L Alkaline Phosphatase (38-126) U/L Total Creatine Kinase (55-170) U/L CK-MB (CK-2) CK-MB (CK-2) Rel Index Troponin I (0.01-0.034) ng/mL Total Protein (6.3-8.2) g/dL Albumin (3.5-5.0) g/dL Globulin (1.7-4.1) g/dL Albumin/Globulin Ratio (1.0-2.8) SARS-CoV-2 (PCR) Negative (Negative) Imaging Data CT scan - head: Radiologist's Impression: [address] [address] [address] Scan Report Signed Patient: Da Barclay MR#: [id number] : 2000 Acct:[id number] Age/Sex: 21 / M Date of Service: 10/07/22 Loc: ED Accession Number: [id number] ?? Procedure: CT Stroke Ordering Provider: Marcial James MD PROCEDURE:? CT STROKE ? INDICATIONS:? lt eye vision loss ? TECHNIQUE:? Noncontrast 4.5 mm thick angled axial sections acquired from the foramen magnum to the vertex, with coronal reformats.? For radiation dose reduction, the following was used:? automated exposure control, adjustment of mA and/or kV according to patient size.? ? COMPARISON:? [facility], CT, CT HEAD/BRAIN WO CON, 05/19/2022, 20:30. ? FINDINGS:? Image quality:? Excellent.? ? CSF spaces:? Basal cisterns are patent.? No extra-axial fluid collections.? Ventricles are normal in size and shape.? ? Brain:? No midline shift.? No intracranial masses or hemorrhage.? Davis-white matter interface is normal.? Large chronic region of encephalomalacia within the right superior frontal parietal lobe junction extending into the right temporal lobe.? Small chronic infarct within the mauro.. ? Skull and face:? Right frontoparietal craniectomy, as before. ? Sinuses:? Visualized sinuses and mastoids are clear.? ? IMPRESSION:? 1. Postsurgical sequelae. 2. No acute intracranial abnormality. 3. Findings discussed with Dr. James on 10/07/2022 at 15:40 hours. ? This study fulfills neurological imaging criteria for inclusion or exclusion of acute stroke therapies based on available published neurological imaging guidelines.? ? ? Dictated by: Idalia Mckeon M.D. on 10/07/2022 at 15:38 ? ? Approved by: Idalia Mckeon M.D. on 10/07/2022 at 15:41 ? CTA - brain/neck: Radiologist's Impression: [place] [address] CT Scan Report Signed Patient: Da Barclay MR#: [id number] : 2000 Acct:[id number] Age/Sex: 21 / M Date of Service: 10/07/22 Loc: ED Accession Number: [id number] ?? Procedure: CT angio head and neck Ordering Provider: Marcial James MD PROCEDURE:? CT ANGIO HEAD AND NECK ? INDICATIONS:? 21-year-old with left vision loss and history of aneurysm, seizure and craniotomy ? TECHNIQUE:? After the administration of intravenous contrast, 1 mm thick sections acquired from the aortic arch through the [place].? Post-contrast 4.5 mm thick sections then re-acquired from the foramen magnum to the vertex.? MIP reformats of the arterial vasculature were utilized.? For radiation dose reduction, the following was used:? automated exposure control, adjustment of mA and/or kV according to patient size.? ? COMPARISON:? [facility], CT, CT HEAD/BRAIN WO CON, 05/19/2022, 20:30. ? FINDINGS:? Image quality:? Excellent.? ? BRAIN:? ? HEAD CT ANGIOGRAPHY:? Anterior circulation:? Intracranial internal carotid arteries are normal in size and flow.? The flow within the paired anterior cerebral arteries is normal and symmetric.? The flow within the middle cerebral arteries is normal and symmetric.? The anterior communicating artery is seen.? No aneurysms are seen.? ? Posterior circulation:? Visualized portions of the vertebral arteries demonstrate normal caliber, and join to form a normal appearing basilar artery.? Flow within the posterior cerebral arteries is normal and symmetric.? No aneurysms are seen.? ? Decompressive right-sided craniectomy associated with cystic encephalomalacia and gliosis, similar to the prior exams ? NECK CT ANGIOGRAPHY:? Carotid system:? The great vessels demonstrate a conventional anatomy as they arise from the aortic arch.? The origins of the common carotid arteries appear patent.? The common carotid arteries demonstrate normal caliber and courses.? The bifurcation regions are both widely patent.? The internal carotid arteries demonstrate normal calibers and courses.? ? Posterior circulation:? The origins of the vertebral arteries both appear widely patent.? The more superior extracranial portions of both vertebral arteries also demonstrate normal courses and calibers.? They join to form a normal appearing basilar artery.? ? Soft tissues:? Visualized neck soft tissues demonstrate no suspicious abnormalities.? ? Bones:? No suspicious bony lesions.? Visualized cervical spine appears normally aligned.? IMPRESSION:? ? Unremarkable CT angiogram of the head and neck status post decompressive right craniectomy.? No evidence of recurrent or residual aneurysm ? Any quantitative measurements of stenosis were performed using NASCET criteria.? Approved by: Jah Martinez M.D. on 10/07/2022 at 16:07? CT venogram head: Radiologist's Impression: [address] [address] [address] Scan Report Signed Patient: Da Barclay MR#: [id number] : 2000 Acct:[id number] Age/Sex: 21 / M Date of Service: 10/07/22 Loc: ED Accession Number: [id number] ?? Procedure: CT angio head Ordering Provider: Marcial James MD PROCEDURE:? CT venogram HEAD ? INDICATIONS:? 21-year-old male with left-sided vision loss and history of decompressive right craniectomy status post aneurysm ? TECHNIQUE:? Precontrast 4.5 mm thick angled axial sections acquired from the foramen magnum to the vertex. ? After the administration of intravenous contrast, 1 mm thick sections acquired from the skull base to the vertex after an appropriate venous phase delay.? Postcontrast 4.5 mm thick sections then re-acquired from the foramen magnum to the vertex.? Zmmfllp-jvhvxrann-ujowxhvjxq (MIP) reformats were acquired of the venous structures.? For radiation dose reduction, the following was used:? automated exposure control, adjustment of mA and/or kV according to patient size.? ? COMPARISON:? None. ? FINDINGS:? Image quality:? Excellent.? ? Venous structures:? Sagittal, straight, transverse, and sigmoid sinuses appear patent.? ? CSF spaces:? Ventricles are normal in size and shape.? Basal cisterns are patent.? No extra-axial fluid collections.? ? Brain:? Cystic encephalomalacia and gliosis noted on the right with volume loss, unchanged from the priors.? Associated right cerebral peduncle atrophy.? Decompressive craniectomy present.? No intracranial hemorrhage or midline shift.? Old lacunar infarct noted in the central mauro. ? Skull and face:? Calvarium and facial bones appear intact, without suspicious lesions.? ? Sinuses:? Visualized sinuses and mastoids are clear.? Incidental hypoplastic/aplastic frontal and sphenoid sinus.? Minimal anterior right ethmoid mucosal thickening.? Hypo pneumatization of the right maxillary sinus ? IMPRESSION:? ? Unremarkable CT venogram of the head.? No evidence of dural venous thrombosis MRI brain: Radiologist's Impression: PROCEDURE:? MR HEAD/BRAIN WO CON ? INDICATIONS:? Stroke/left eye vision loss ? TECHNIQUE:? Noncontrast axial T1 spin echo, axial T2 fast spin echo, sagittal and axial FLAIR, coronal T2 fast spin echo, axial gradient echo, axial diffusion and ADC through the brain.? ? COMPARISON:? [facility], CT, CT HEAD WITHOUT CONTRAST, 03/03/2022, 11:14.? [facility], CT, CT STROKE, 10/07/2022, 15:24.? [facility], CT, CT ANGIO HEAD AND NECK, 10/07/2022, 16:14. ? FINDINGS:? Image quality:? This examination is limited by involuntary motion artifact.? ? CSF Spaces:? Basal cisterns are patent.? No extra-axial fluid collections.? Ex vacuole dilatation can be seen involving the right lateral ventricle. ? Brain:? No intracranial masses.? Davis/white matter interface is normal.? Brainstem appears normal.? Diffusion-weighted images demonstrate no acute ischemic insult.? Normal intravascular flow voids are present.? ? Extensive chronic volume loss can be seen involving the right frontal temporal region and the anterolateral right temporal lobe, with surrounding encephalomalacia.? Hemosiderin deposition can be seen along the margins of the areas of volume loss. ? Mild scattered foci of hemosiderin deposition can be seen elsewhere, which are attributed to mild areas of prior hemorrhage. ? Skull and face:? Right-sided craniotomy changes are seen, which are better demonstrated on CT.? Calvarium has normal marrow signal.? Orbits appear normal.? ? Sinuses:? There is a mucous retention cyst seen involving the left maxillary sinus.? Sinuses and mastoids are otherwise clear.? IMPRESSION:? No findings of acute or subacute infarction can be seen. ? Stable areas prominent brain parenchymal volume loss can be seen on the right, with findings prior hemorrhage.? ? Prior right-sided craniotomy changes.? ? Dictated by: Carlton Prather M.D. on 10/07/2022 at 17:24 ? ? Approved by: Carlton Prather M.D. on 10/07/2022 at 17:28 ? [facility] Narrative Medical decision making narrative: Code stroke called at 3:20 p.m.. Last well known 1:28 p.m.. Patient brought in by mother for sudden onset loss of vision only in the left eye. Has history stroke 2 years ago left him with left-sided weakness. This is not new. Patient states has chronic headache and that is not new. No slurred speech. No facial droop. Patient has never had vision loss before. Patient has history of aplastic anemia. Has spontaneous bleed in the right side of the brain which required craniotomy. This left him with left-sided weakness. Patient also had another stroke intraoperatively for intestinal surgery/polypectomy. Patient brought from triage room to CT imaging. Patient is awake alert oriented x4. After history and exam patient immediately taken over to CT scan for code stroke imaging. CBC CMP EKG CT head CT angiogram head and neck ordered. MDM CC: Left eye vision loss Complicating co-morbidities: History aplastic anemia/thrombocytopenia/stroke/head bleed, central artery occlusion Data collected from: Patient and mother Medical records reviewed: Laboratory studies from May 2022 however only platelet is from 2016 with platelet count of 15 Differential considered: Includes but not limited to stroke head bleed seizure Exam documented above, pertinent findings include: Total left eye vision loss Lab Test results independently reviewed as above. Pertinent findings: Troponin less than 0.012 WBC 8.5 hemoglobin 11.4 hematocrit 34.3 platelets 198 INR 1.2 Sodium 140 potassium 4.1 bicarb 21 GFR greater than 60 AST 23 ALT 19 Independently reviewed EKG as above sinus bradycardia rate [address] elevation or depression Imaging studies independently reviewed: CT head without contrast no acute intracranial abnormality. There are postsurgical sequelae. CT angiogram head neck no acute process, CT venogram head no acute process, MRI brain no acute process Consultations: Spoke with [facility] tele stroke doctor Abraham at 3:36 p.m., he will need to review with his attending given patient within 4 hour window however history of thrombocytopenia possibly not a candidate for tPA Time 3:40 p.m.. Radiologist called to give report negative head CT without contrast 4:[address] Rosario again. Patient is not a candidate for tPA as we do not know platelet count.. He recommends contacting [facility] for continuity of care. Patient has essentially all of his care there 4:30 p.m.. Spoke with Lula, nurse practitioner with [facility]. She notes patient very well. Patient has been informing their service left eye blurry vision for the past 2 weeks. I did confirm this with patient as well now. She would like patient to have MRI if possible. Platelets did return and are 198. She has not recommended tPA given symptoms starting 2 weeks ago and this may not be a stroke. She does agree patient does need ophthalmology consult, we do not have Ophthalmology or neurology here. She will call us back for further instructions. 4:35 p.m.. I updated patient and mother. He does agree he is had off and on blurry vision left eye for 2 weeks. Patient just returned from CT angiogram head neck and CT venogram of the brain 4:47 p.m.. I spoke with Lula, [facility]. Does not recommend patient getting tPA as as history of bleeding diatheses with aplastic anemia and at the same we are not sure this is absolutely a stroke. Since onset 2 weeks ago with blurry vision. Patient will need ophthalmology and neurology, recommends patient to be transferred to [facility]. 5:[address] Fuentes, [facility]. He will accept patient Treatments: IV fluids Re-evaluations: While in CAT scan imaging for dry head CT patient had seizure. Had to bring patient to [facility] room 1. Within 10 minutes patient awake alert at baseline. Will need to return back for angiogram 3:55 p.m. patient has been at baseline since being transferred from CT scan imaging to [facility] room 1. Patient states at 1:30 a.m. his left eye vision changed, it was not sudden onset of vision loss. It was not like a curtain being drawn down. It was a slow loss he describes like a light bulb dimming out. At this time clinically does not present as retinal detachment. Does not present has ophthalmic artery occlusion. Patient does have history of seizures. Is not on any seizure medication other than lorazepam as needed for seizure events. He is not on carbamazepine or Keppra. I did try orbital massage left eye but no effect. Patient does not wear contact lenses or glasses 4:55 p.m.. Re-evaluation patient. He states in his left eye he can see the left peripheral field better after I had massage his left eye. I have restarted massaging the orbit again. Every 5 minutes. 5:58 p.m.. Patient is going to MRI before being transferred to [facility]. Patient in MRI now. Discussion: Appropriate for transfer. We do not have ophthalmological services here. We do not have neurology services here. I did review with mother and patient. They do understand and agree for transfer Diagnosis: Acute vision loss left eye Discharge Plan Departure Patient Disposition: [facility] Clinical Impression: Vision loss of left eye Prescriptions: No Action sevelamer HCl 800 mg tablet 800 mg PO TID enoxaparin 300 mg/3 mL solution subcut escitalopram oxalate 5 mg tablet 5 mg PO DAILY fluticasone propionate [Allergy Relief (fluticasone)] 50 mcg/actuation spray,suspension 2 spray NASAL DAILY -Toddler Multivitamin Drops PO albuterol sulfate [Ventolin HFA] 90 mcg/actuation HFA aerosol inhaler 4 puff inhalation Q4-6H PRN (Reason: Cough or wheeze) Qty: 8.5 4RF sirolimus [Rapamune] 1 MG/1 ML solution 0.25 mg PO Qty: 0 prednisone 10 MG tablet 10 mg PO Qty: 0 atovaquone [Mepron] 750 MG/5 ML suspension 8.5 ml PO Qty: 0 posaconazole [Noxafil] 100 MG tablet,delayed release (DR/EC) 400 mg PO Qty: 0 [WOO515] 8 ml Qty: 0 azithromycin [Zithromax Z-Papa] 250 MG tablet 250 mg PO SEE INSTRUCTIONS Qty: 0 montelukast [Singulair] 10 MG tablet 10 mg PO QDAY Qty: 0 fluticasone propion-salmeterol [Advair Diskus] 100 MCG/50 MCG blister with device 1 puff BID Qty: 0 Atrovent HFA 12.9 GM HFA aerosol inhaler 2 puff INH TID Qty: 0 sodium chloride 0.9 % 10 ML solution 5 ml INH BID Qty: 0 omeprazole 20 MG capsule,delayed release(DR/EC) 20 mg PO QDAY Qty: 0 Zenpep 10,000 UNITS capsule,delayed release(DR/EC) 2 ecc PO AC Qty: 0 clonidine HCl 0.1 MG tablet 0.2 mg PO Qty: 0 amlodipine [Norvasc] 5 MG tablet 5 mg PO BID Qty: 0 MULTIVITAMIN 2 tab PO QDAY Qty: 0 [VIACTIV CA=D] 1 tab TID Qty: 0 [BICITRA] 30 ml PO TID Qty: 0 potassium chloride [Klor-Con 8] 8 MEQ tablet extended release 3.75 ml PO TID Qty: 0 cholecalciferol (vitamin D3) 10,000 UNIT tablet 10,000 unit PO Qty: 0 loratadine [Claritin] 10 MG tablet 10 mg PO QDAYP PRNQty: 0 lorazepam 1 MG tablet 1 mg PO QID Qty: 0 OMEGA-3 FATTY ACIDS (FISH OIL) 6.25 ml PO BID Qty: 0 ondansetron 4 MG tablet,disintegrating 5 ml PO TID Qty: 0 oxycodone [OxyContin] 40 MG tablet,oral only,ext.rel.12 hr 4 ml PO QID Qty: 0 [D5W/NA/MAG/K] 1,500 ml IV SEE INSTRUCTIONS Qty: 0 Aranesp (in polysorbate) 100 MCG/0.5 ML syringe 0.1 mg IJ QWEEKMO Qty: 0 Nplate 250 MCG recon soln 80 mcg SQ QWEEK Qty: 0 simethicone [Gas Relief 80 (simethicone)] 80 mg tablet,chewable 80 mg PO BID Qty: 120 1RF calcium carbonate [Calcium Antacid] 200 mg calcium (500 mg) tablet,chewable See Rx Instructions .ROUTE .COMPLEX Qty: 90 4RF Dose Instruction: TAKE 2 TABLETS BY MOUTH THREE TIMES DAILY FOR INDIGESTION Rx Instructions: TAKE 2 TABLETS BY MOUTH THREE TIMES DAILY FOR INDIGESTION lorazepam 2 mg/mL concentrate 2 mg sublingual .COMPLEX PRN (Reason: seizure) Qty: 30 0RF Rx Instructions: 1 mL at onset of seizure. Take another 1 ml after two minutes if still seizing. hydromorphone 2 mg tablet See Rx Instructions .ROUTE .COMPLEX Qty: 152 0RF Dose Instruction: TAKE 3 TABLETS (3 X 2 MG) BY MOUTH EVERY 3 HOURS NEEDED FOR PAIN Rx Instructions: TAKE 3 TABLETS (3 X 2 MG) BY MOUTH EVERY 3 HOURS NEEDED FOR PAIN methadone 10 mg tablet See Rx Instructions .ROUTE .COMPLEX Qty: 60 0RF Dose Instruction: TAKE 1 TABLET BY MOUTH EVERY 12 HOURS FOR PAIN Rx Instructions: TAKE 1 TABLET BY MOUTH EVERY 12 HOURS FOR PAIN gabapentin 300 mg capsule See Rx Instructions .ROUTE .COMPLEX Qty: 90 2RF Dose Instruction: TAKE 1 CAPSULE BY MOUTH THREE TIMES DAILY Rx Instructions: TAKE 1 CAPSULE BY MOUTH THREE TIMES DAILY oxcarbazepine 150 mg tablet See Rx Instructions .ROUTE .COMPLEX Qty: 240 2RF Dose Instruction: TAKE 4 TABLETS BY MOUTH EVERY MORNING AND TAKE 3 TABLETS BY MOUTH EVERY EVENING Rx Instructions: TAKE 4 TABLETS BY MOUTH EVERY MORNING AND TAKE 4 TABLETS BY MOUTH EVERY EVENING levetiracetam 500 mg tablet See Rx Instructions .ROUTE .COMPLEX Qty: 120 2RF Dose Instruction: TAKE 2 TABLETS BY MOUTH (1000 MG) TWICE DAILY FOR SEIZURES Rx Instructions: TAKE 2 TABLETS BY MOUTH (1000 MG) TWICE DAILY FOR SEIZURES trazodone 100 mg tablet See Rx Instructions .ROUTE .COMPLEX Qty: 30 0RF Dose Instruction: TAKE 1 TABLET BY MOUTH BEDTIME Rx Instructions: TAKE 1 TABLET BY MOUTH BEDTIME oxcarbazepine 600 mg tablet 600 mg PO BID Qty: 60 0RF hydrocortisone 10 mg tablet See Rx Instructions .ROUTE .COMPLEX Qty: 75 0RF Dose Instruction: TAKE 1/2 TABLET EVERY AM, 1/2 TABLET AT NOON AND 1/4 TABLET EVERY EVENING FOR ADRENAL SUPPORT Rx Instructions: TAKE 1/2 TABLET EVERY AM, 1/2 TABLET AT NOON AND 1/4 TABLET EVERY EVENING FOR ADRENAL SUPPORT epinephrine 0.3 mg/0.3 mL auto-injector 0.3 mg IM Q5-15M PRN (Reason: anaphylaxis) Qty: 2 2RF Rx Instructions: do not exceed 3 doses per episode epinephrine [EpiPen 2-Papa] 0.3 mg/0.3 mL auto-injector 0.3 mg IM Q5-15M PRN (Reason: anaphylaxis) Qty: 2 0RF Rx Instructions: do not exceed 3 doses per episode Referrals: Yordy Lantigua MD [Primary Care Provider] -
[2022-10-07 15:54] LABS: Add Manual Diff / Slide Review NO; Basophils Absolute Auto 100 /uL (0-100); Basophils Percent Auto 0.6 % (0-2); Eosinophils Absolute Auto 0 /uL (0-450); Eosinophils Percent Auto 0.4 % (2-4); Hematocrit 34.3 % (41-53); Hemoglobin 11.4 g/dL (13.5-17.5); Lymphocytes Absolute Auto 2600 /uL (1100-4500); Lymphocytes Percent Auto 30.4 % (25-40); Mean Corpuscular HGB Conc 33.3 % (30-36); Mean Corpuscular Hemoglobin 31.1 PG (26-34); Mean Corpuscular Volume 93.2 fL (80-100); Monocytes Absolute Auto 600 /uL (0-900); Monocytes Percent Auto 7.1 % (3-14); Neutrophils Absolute Auto 5200 /uL (1500-7000); Neutrophils Percent Auto 61.5 % (50-75); Platelet Count 198 X10^3/uL (150-400); Red Blood Cell Count 3.68 X10^6/uL (4.5-5.9); Red Cell Distribution Width 14.8 % (11.6-14.8); White Blood Cell Count 8.5 X10^3/uL (4.5-11.0)
[2022-10-07 16:03] LABS: INR 1.2 (0.9-1.3); Prothrombin Time 14.1 SECONDS (10.1-12.7)
[2022-10-07 16:05] LABS: PTT Partial Thromboplastin Tim 32 SECONDS (26-36)
[2022-10-07 16:09] LABS: Alanine Aminotransferase 19 IU/L (<50); Albumin 4.4 g/dL (3.5-5.0); Alkaline Phosphatase 128 U/L (38-126); Aspartate Aminotransferase 23 IU/L (17-59); BUN Creatinine Ratio 15.7 (6-22); Bilirubin Total 0.7 mg/dL (0.2-1.3); Blood Urea Nitrogen 16 mg/dL (9-20); Calcium 10.3 mg/dL (8.4-10.2); Carbon Dioxide 21 mmol/L (22-32); Chloride 108 mmol/L (98-107); Creatine Kinase 85 U/L (55-170); Estimated Glomerular Filt Rate > 60 mL/min (>60); Globulin 4.2 g/dL (1.7-4.1); Glucose 89 mg/dL (70-100); HEMOLYSIS < 15 (0-50); Potassium 4.1 mmol/L (3.4-5.1); Sodium 140 mmol/L (137-145); Total Protein 8.6 g/dL (6.3-8.2)
[2022-10-07 16:19] LABS: Troponin I < 0.012 ng/mL (0.01-0.034)
[2022-10-07 16:20] LABS: COVID19 -Nasal RAPID Negative (Negative)
--- NOTE | 2022-10-07 16:28 | DI.CT.S_ITS ---
PROCEDURE: CT ANGIO HEAD AND NECK INDICATIONS: 21-year-old with left vision loss and history of aneurysm, seizure and craniotomy TECHNIQUE: After the administration of intravenous contrast, 1 mm thick sections acquired from the aortic arch through the [place] of [place]. Post-contrast 4.5 mm thick sections then re-acquired from the foramen magnum to the vertex. MIP reformats of the arterial vasculature were utilized. For radiation dose reduction, the following was used: automated exposure control, adjustment of mA and/or kV according to patient size. COMPARISON: [facility], CT, CT HEAD/BRAIN WO CON, 05/19/2022, 20:30. FINDINGS: Image quality: Excellent. BRAIN: HEAD CT ANGIOGRAPHY: Anterior circulation: Intracranial internal carotid arteries are normal in size and flow. The flow within the paired anterior cerebral arteries is normal and symmetric. The flow within the middle cerebral arteries is normal and symmetric. The anterior communicating artery is seen. No aneurysms are seen. Posterior circulation: Visualized portions of the vertebral arteries demonstrate normal caliber, and join to form a normal appearing basilar artery. Flow within the posterior cerebral arteries is normal and symmetric. No aneurysms are seen. Decompressive right-sided craniectomy associated with cystic encephalomalacia and gliosis, similar to the prior exams NECK CT ANGIOGRAPHY: Carotid system: The great vessels demonstrate a conventional anatomy as they arise from the aortic arch. The origins of the common carotid arteries appear patent. The common carotid arteries demonstrate normal caliber and courses. The bifurcation regions are both widely patent. The internal carotid arteries demonstrate normal calibers and courses. Posterior circulation: The origins of the vertebral arteries both appear widely patent. The more superior extracranial portions of both vertebral arteries also demonstrate normal courses and calibers. They join to form a normal appearing basilar artery. Soft tissues: Visualized neck soft tissues demonstrate no suspicious abnormalities. Bones: No suspicious bony lesions. Visualized cervical spine appears normally aligned. IMPRESSION: Unremarkable CT angiogram of the head and neck status post decompressive right craniectomy. No evidence of recurrent or residual aneurysm Any quantitative measurements of stenosis were performed using NASCET criteria. Approved by: Jah Martinez M.D. on 10/07/2022 at 16:07
--- NOTE | 2022-10-07 16:35 | PC.NURSE ---
spoke with [facility]. Pt's mother reports pt has been having occasional blurry vision for the past 2 weeks and just today his vision went completely black for 2 hrs. Pt says that his vision is clear on the periphery but is still blurry and splotchy in the center of his vision
--- NOTE | 2022-10-07 16:50 | PC.NURSE ---
Pt has a hx of CVA with L sided residual effects
--- NOTE | 2022-10-07 16:54 | PC.NURSE ---
Dr. James has given a verbal order to gently massage L eye Q5min
[2022-10-07] MEDS: SODIUM CHLORIDE 0.9% 500 ML 1000 ML IV (16:57)
--- NOTE | 2022-10-07 17:27 | DI.MRI.S_ITS ---
PROCEDURE: MR HEAD/BRAIN WO CON INDICATIONS: Stroke/left eye vision loss TECHNIQUE: Noncontrast axial T1 spin echo, axial T2 fast spin echo, sagittal and axial FLAIR, coronal T2 fast spin echo, axial gradient echo, axial diffusion and ADC through the brain. COMPARISON: [facility], CT, CT HEAD WITHOUT CONTRAST, 03/03/2022, 11:14. [facility], CT, CT STROKE, 10/07/2022, 15:24. [facility], CT, CT ANGIO HEAD AND NECK, 10/07/2022, 16:14. FINDINGS: Image quality: This examination is limited by involuntary motion artifact. CSF Spaces: Basal cisterns are patent. No extra-axial fluid collections. Ex vacuole dilatation can be seen involving the right lateral ventricle. Brain: No intracranial masses. Davis/white matter interface is normal. Brainstem appears normal. Diffusion-weighted images demonstrate no acute ischemic insult. Normal intravascular flow voids are present. Extensive chronic volume loss can be seen involving the right frontal temporal region and the anterolateral right temporal lobe, with surrounding encephalomalacia. Hemosiderin deposition can be seen along the margins of the areas of volume loss. Mild scattered foci of hemosiderin deposition can be seen elsewhere, which are attributed to mild areas of prior hemorrhage. Skull and face: Right-sided craniotomy changes are seen, which are better demonstrated on CT. Calvarium has normal marrow signal. Orbits appear normal. Sinuses: There is a mucous retention cyst seen involving the left maxillary sinus. Sinuses and mastoids are otherwise clear. IMPRESSION: No findings of acute or subacute infarction can be seen. Stable areas prominent brain parenchymal volume loss can be seen on the right, with findings prior hemorrhage. Prior right-sided craniotomy changes. Dictated by: Carlton Prather M.D. on 10/07/2022 at 17:24 Approved by: Carlton Prather M.D. on 10/07/2022 at 17:28
--- NOTE | 2022-10-07 19:04 | PC.NURSE ---
HEATHER Marin at [facility] center called and given an updated report
== END 2022-10-07 18:42 | disposition short-term general hospital (02) ==
PROVIDERS: Emergency Provider Emergency Medicine; PCP Pediatrics Pediatric Nephrology; Referring Provider Pediatrics Pediatric Nephrology
DX: H54.7 Unspecified visual loss (principal); R00.1 Bradycardia, unspecified; R29.711 NIHSS score 11; Z79.899 Other long term (current) drug therapy; Z20.822 Contact with and (suspected) exposure to COVID-19; Z86.73 Personal history of transient ischemic attack (TIA), and cerebral infarction without residual deficits
CPT/HCPCS: 36415; 70450; 70496; 70498; 70551; 80053; 82550; 84484; 85025; 85610; 85730; 87635; 93005; 96360; 99285; C9803; Q9967

== ENCOUNTER 2022-12-22 20:11 | Emergency (ER) | payer OTHER, MEDICAID, SELFPAY ==
[2022-12-22] VITALS (8 sets, daily range): BP systolic 99–124; BP diastolic 52–62; PULSE 46–98; RESP 17–30; TEMP 37.4; O2SAT 97–99
--- NOTE | 2022-12-22 20:39 | ED.NAVMDI ---
HPI - Nausea/Vomiting/Diarrhea General Chief complaint: Nausea/Vomiting/Diarrhea Stated complaint: N/V Fever- hx of colon cancer Time Seen by Provider: 12/22/22 20:22 Source: patient and EMS Mode of arrival: EMS History of Present Illness HPI Narrative: 21-year-old male nonsmoker with extensive medical history including colon cancer with colon resection, kidney transplant on chronic steroids, presents by EMS for a few days of nausea, vomiting, diarrhea, fever and shaking chills. Additionally he has some runny nose, nasal congestion and sore throat. He denies any headache or blurred vision. He denies any sore throat or neck pain. He denies chest pain or shortness of breath but has had some cough. He denies abdominal pain. Denies exposure to other ill persons. He feels a bit fatigued and under the weather. He states he is vomited 11 times today. He denies any change in medications or diet. Denies any recent travel. Related Data Home Medications Medication Instructions Recorded Confirmed MULTIVITAMIN 2 tab PO QDAY ##0 03/17/16 10/18/20 OMEGA-3 FATTY ACIDS (FISH OIL) 6.25 ml PO BID ##0 03/17/16 10/18/20 [BICITRA] 30 ml PO TID ##0 03/17/16 10/18/20 [HOF450] 8 ml ##0 03/17/16 10/18/20 [D5W/NA/MAG/K] 1,500 ml IV SEE INSTRUCTIONS ##0 03/17/16 10/18/20 [VIACTIV CA=D] 1 tab TID ##0 03/17/16 10/18/20 amlodipine 5 mg tablet (Norvasc) 5 mg PO BID ##0 03/17/16 10/18/20 atovaquone 750 mg/5 mL oral 8.5 ml PO ##0 03/17/16 10/18/20 suspension (Mepron) azithromycin 250 mg tablet 250 mg PO SEE INSTRUCTIONS ##0 03/17/16 10/18/20 (Zithromax Z-Papa) cholecalciferol (vitamin D3) 250 10,000 unit PO ##0 03/17/16 10/18/20 mcg (10,000 unit) tablet clonidine HCl 0.1 mg tablet 0.2 mg PO ##0 03/17/16 10/18/20 darbepoetin amina in polysorbat 100 0.1 mg IJ QWEEKMO ##0 03/17/16 10/18/20 mcg/0.5 mL in polysorbate injection syringe (Aranesp) fluticasone 100 mcg-salmeterol 50 1 puff BID ##0 03/17/16 10/18/20 mcg/dose blistr powdr for inhalation (Advair Diskus) ipratropium bromide 17 2 puff INH TID ##0 03/17/16 10/18/20 mcg/actuation HFA aerosol inhaler (Atrovent HFA) wualtf-yefjlqye-nmbflwi 2 ecc PO AC ##0 03/17/16 10/18/20 10,000-34,000-55,000 unit capsule,delayed rel (Zenpep) loratadine 10 mg tablet (Claritin) 10 mg PO QDAYP PRN #0 tabs 03/17/16 10/18/20 lorazepam 1 mg tablet 1 mg PO QID ##0 03/17/16 10/18/20 montelukast 10 mg tablet 10 mg PO QDAY ##0 03/17/16 10/18/20 (Singulair) omeprazole 20 mg capsule,delayed 20 mg PO QDAY ##0 03/17/16 10/18/20 release ondansetron 4 mg disintegrating 5 ml PO TID ##0 03/17/16 10/18/20 tablet oxycodone 40 mg tablet,crush 4 ml PO QID ##0 03/17/16 10/18/20 resistant,extended release 12 hr (OxyContin) posaconazole 100 mg tablet,delayed 400 mg PO ##0 03/17/16 10/18/20 release (Noxafil) potassium chloride 8 mEq 3.75 ml PO TID ##0 03/17/16 10/18/20 tablet,extended release (Klor-Con) prednisone 10 mg tablet 10 mg PO #0 tabs 03/17/16 10/18/20 romiplostim 250 mcg subcutaneous 80 mcg SQ QWEEK ##0 03/17/16 10/18/20 solution (Nplate) sirolimus 1 mg/mL oral solution 0.25 mg PO ##0 03/17/16 10/18/20 (Rapamune) sodium chloride 0.9 % 5 ml INH BID ##0 03/17/16 10/18/20 enoxaparin 300 mg/3 mL SUBCUT 09/15/19 10/18/20 subcutaneous solution escitalopram oxalate 5 mg tablet 5 mg PO DAILY 09/15/19 10/18/20 fluticasone propionate 50 2 spray intranasal DAILY 09/15/19 10/18/20 mcg/actuation nasal spray,suspension (Allergy Relief (fluticasone)) pediatric multivitamin no.165 drop PO 09/15/19 10/18/20 (-Toddler Multivitamin oral drops) sevelamer HCl 800 mg tablet 800 mg PO TID 09/15/19 10/18/20 Previous Rx's Medication Instructions Recorded albuterol sulfate 90 mcg/actuation 4 puff inhalation Q4-6H PRN Cough 05/03/20 aerosol inhaler (Ventolin HFA) or wheeze #8.5 grams simethicone 80 mg chewable tablet 80 mg PO BID #120 tabs 06/25/20 (Gas Relief 80 (simethicone)) calcium carbonate 200 mg calcium See Rx Instructions .Route 07/30/20 (500 mg) chewable tablet (Calcium .COMPLEX #90 caps Antacid) lorazepam 2 mg/mL oral concentrate 2 mg sublingual .COMPLEX PRN 12/28/20 seizure #30 mL hydromorphone 2 mg tablet See Rx Instructions .Route 01/28/21 .COMPLEX #152 tabs methadone 10 mg tablet See Rx Instructions .Route 02/07/21 .COMPLEX #60 tabs gabapentin 300 mg capsule See Rx Instructions .Route 02/25/21 .COMPLEX #90 caps epinephrine 0.3 mg/0.3 mL 0.3 mg (0.3 mL) IM Q5-15M PRN 03/18/21 injection, auto-injector anaphylaxis #2 ea oxcarbazepine 150 mg tablet See Rx Instructions .Route 05/31/21 .COMPLEX #240 tabs levetiracetam 500 mg tablet See Rx Instructions .Route 06/14/21 .COMPLEX #120 tabs oxcarbazepine 600 mg tablet 600 mg PO BID #60 tabs 07/12/21 trazodone 100 mg tablet See Rx Instructions .Route 07/12/21 .COMPLEX #30 tabs hydrocortisone 10 mg tablet See Rx Instructions .Route 08/14/21 .COMPLEX #75 tabs epinephrine 0.3 mg/0.3 mL 0.3 mg (0.3 mL) IM Q5-15M PRN 02/06/22 injection, auto-injector (EpiPen anaphylaxis #2 ea 2-Papa) ondansetron 4 mg disintegrating 4 mg PO TID-QID PRN nausea and 12/23/22 tablet vomiting #10 tabs Allergies Allergy/AdvReac Type Severity Reaction Status Date / Time bee venom protein (honey bee) Allergy Severe Anaphylaxis Verified 12/22/22 20:26 chlorhexidine [CHLORHEXIDINE] Allergy Severe ANAPHLAXIS Verified 12/22/22 20:26 clocinizine Allergy Severe Anaphylaxis Verified 12/22/22 20:26 peppermint Allergy Severe Anaphylaxis Verified 12/22/22 20:26 Sulfa (Sulfonamide Allergy Severe Anaphylaxis Verified 12/22/22 20:26 Antibiotics) amphotericin B Allergy Unknown Verified 12/22/22 20:26 [From AMBISOME] ethyl alcohol [ETHYL ALCOHOL] Allergy Unknown Verified 12/22/22 20:26 mannitol [MANNITOL] Allergy Unknown Verified 12/22/22 20:26 vancomycin [VANCOMYCIN] Allergy Unknown Verified 12/22/22 20:26 Review of Systems Review of Systems Narrative: GENERAL: see HPI HEENT: see HPI RESPIRATORY: see HPI CARDIOVASCULAR: Denies chest pain, palpitations, orthopnea, edema, GASTROINTESTINAL: see HPI : Denies dysuria, frequency, incontinence, hematuria, urinary retention. MUSCULOSKELETAL: denies weakness, joint pain, or bony pain SKIN: Denies rash, skin lesions, or other NEUROLOGIC: Denies weakness, headache, numbness, change in speech, confusion, seizures, incoordination. PSYCHIATRIC: No concerning psychosocial issues. 12 point review of systems is negative except for those stated above Patient History Medical History Aplastic anemia 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 Intracranial hemorrhage Status post craniectomy Status post total colectomy Social History Smoking Status: Never smoker Smoking Status: Never smoker alcohol intake frequency: 0-2 drinks per day Substance Use Type: does not use Exam Narrative Exam Narrative: GENERAL: [21] year old patient appears stated age. Chronically ill patient, in mild acute distress. HEAD: Atraumatic. Normocephalic. EYES: Pupils equal round and reactive. Extraocular motions intact. No scleral icterus. No injection or drainage. ENT: Nose without bleeding, purulent drainage. Throat without erythema, tonsillar hypertrophy or exudate. Airway patent. NECK: Trachea midline. Non tender CARDIOVASCULAR: Regular rate and rhythm without murmurs, gallops, or rubs. RESPIRATORY: Clear to auscultation. Breath sounds equal bilaterally. No wheezes, rales, or rhonchi. GASTROINTESTINAL: Abdomen soft, non-tender, nondistended. EXTREMITIES: No edema or joint tenderness. BACK: Nontender without deformity or crepitance. No flank tenderness. NEURO: AOx3. SKIN: No rash or erythema of visible areas Initial Vital Signs Initial Vital Signs: Vital Signs Temperature 99.4 F 12/22/22 20:21 Pulse Rate 98 H 12/22/22 20:21 Respiratory Rate 17 12/22/22 20:21 Blood Pressure 124/62 12/22/22 20:21 Pulse Oximetry 98 12/22/22 20:21 Oxygen Delivery Method Room Air 12/22/22 20:21 Course Orders Ordered: ED Orders 12/22/22 20:22 GI Panel (Film Array) Stat 12/22/22 20:23 Urinalysis and Microscopic Stat 12/22/22 20:42 XR acute abdomen series Stat 12/22/22 20:45 Respiratory Panel (Film Array) Stat 12/22/22 20:50 Complete Blood Count AUTO DIFF Stat Comprehensive Metabolic Panel Stat Procalcitonin Stat Troponin & CK Cardiac Panel Stat 12/22/22 20:58 Cytomegalovirus AB IgM Stat 12/22/22 21:13 Blood Culture Stat Lactate (Lactic Acid) Stat Lactated Ringer's (Lactated Ringers) 1,000 mls @ 200 mls/hr IV CONT KUN Last Admin: 12/22/22 21:09 Dose: 200 mls/hr Documented By: KEL Lactated Ringer's (Lactated Ringers) 1,000 mls @ 1,000 mls/hr IV BOLUS ONE Stop: 12/23/22 02:26 Last Admin: 12/23/22 01:38 Dose: 1,000 mls/hr Discontinued Medications Ondansetron HCl (Ondansetron 4 Mg Odt Prepack) 1 bottle MISC SEEINSTR ONE Stop: 12/23/22 01:40 Vital Signs Vital signs: Vital Signs - 8 hr 12/22/22 20:21 12/22/22 21:04 12/22/22 21:05 Temperature 99.4 F Pulse Rate 98 H 89 Respiratory Rate 17 26 H Blood Pressure 124/62 106/59 L Pulse Oximetry 98 Oxygen Delivery Method Room Air 12/22/22 21:05 12/22/22 21:30 12/22/22 21:30 Temperature Pulse Rate 86 79 Respiratory Rate 30 H 28 H Blood Pressure 102/58 L Pulse Oximetry 98 Oxygen Delivery Method 12/22/22 22:00 12/22/22 22:00 12/22/22 22:30 Temperature Pulse Rate 78 Respiratory Rate 30 H Blood Pressure 99/58 L 104/54 L Pulse Oximetry 98 Oxygen Delivery Method 12/22/22 22:30 12/22/22 23:00 12/22/22 23:00 Temperature Pulse Rate 49 L 47 L Respiratory Rate 28 H 26 H Blood Pressure 106/52 L Pulse Oximetry 97 97 Oxygen Delivery Method 12/22/22 23:30 12/22/22 23:30 12/23/22 00:00 Temperature Pulse Rate 46 L Respiratory Rate 27 H Blood Pressure 108/55 L 94/53 L Pulse Oximetry 99 Oxygen Delivery Method 12/23/22 00:00 12/23/22 00:30 12/23/22 00:30 Temperature Pulse Rate 47 L 45 L Respiratory Rate 27 H 26 H Blood Pressure 112/55 L Pulse Oximetry 98 99 Oxygen Delivery Method 12/23/22 01:00 12/23/22 01:00 12/23/22 01:30 Temperature Pulse Rate 67 Respiratory Rate 24 Blood Pressure 104/57 L 115/68 Pulse Oximetry 99 Oxygen Delivery Method 12/23/22 01:30 Temperature Pulse Rate 76 Respiratory Rate 31 H Blood Pressure Pulse Oximetry 98 Oxygen Delivery Method MDM - Nausea/Vomiting/Diarrhea Lab Data 12/22/22 20:50 12/22/22 20:50 Labs: Lab Results 12/22/22 12/22/22 12/22/22 Range/Units 20:45 20:50 20:50 WBC 12.7 H (4.5-11.0) X10^3/uL RBC 3.66 L (4.5-5.9) X10^6/uL Hgb 11.2 L (13.5-17.5) g/dL Hct 34.0 L (41-53) % MCV 92.8 (80-100) fL MCH 30.6 (26-34) PG MCHC 33.0 (30-36) % RDW 13.7 (11.6-14.8) % Plt Count 321 (150-400) X10^3/uL Neut % (Auto) 73.2 (50-75) % Lymph % (Auto) 19.6 L (25-40) % [place] % (Auto) 6.0 (3-14) % Eos % (Auto) 0.7 L (2-4) % Baso % (Auto) 0.5 (0-2) % Neut # (Auto) 9300 H (9712-0888) /uL Lymph # (Auto) 2500 (9993-3397) /uL [place] # (Auto) 800 (0-900) /uL Eos # (Auto) 100 (0-450) /uL Baso # (Auto) 100 (0-100) /uL Sodium 139 (137-145) mmol/L Potassium 4.3 (3.4-5.1) mmol/L Chloride 108 H (98-107) mmol/L Carbon Dioxide 22 (22-32) mmol/L BUN 19 (9-20) mg/dL Creatinine 1.20 (0.66-1.25) mg/dL Estimated GFR > 60 (>60) mL/min BUN/Creatinine Ratio 15.8 (6-22) Glucose 103 H (70-100) mg/dL Lactate (0.7-2.1) mmol/L Calcium 10.4 H (8.4-10.2) mg/dL Total Bilirubin 0.4 (0.2-1.3) mg/dL AST 29 (17-59) IU/L ALT 28 (<50) IU/L Alkaline Phosphatase 106 (38-126) U/L Total Creatine Kinase 70 (55-170) U/L CK-MB (CK-2) TNP CK-MB (CK-2) Rel Index TNP Troponin I < 0.012 (0.01-0.034) ng/mL Total Protein 9.1 H (6.3-8.2) g/dL Albumin 4.5 (3.5-5.0) g/dL Globulin 4.6 H (1.7-4.1) g/dL Albumin/Globulin Ratio 1.0 (1.0-2.8) Procalcitonin 0.13 (<0.5) ng/mL Chlamy pneumoniae PCR Not detected (Not Detect) Adenovirus (PCR) Not detected (Not Detect) B. pertussis DNA (PCR) Not detected (Not Detecte) B.parapertussis DNA PCR Not detected (Not Detecte) Coronavirus OC43 (PCR) Not detected (Not Detect) Coronavirus HKU1 (PCR) Not detected (Not Detect) Coronavirus 229E (PCR) Not detected (Not Detect) SARS-CoV-2 (PCR) Not detected (Not Detecte) Coronavirus NL63 (PCR) Not detected (Not Detect) Human Metapneumovir PCR Not detected (Not Detect) Influenza Type A (PCR) Not detected (Not Detect) Influenza Type B (PCR) Not detected (Not Detect) M. pneumoniae (PCR) Not detected (Not Detect) Parainfluenza 1 (PCR) Not detected (Not Detect) Parainfluenza 2 (PCR) Not detected (Not Detect) Parainfluenza 3 (PCR) Not detected (Not Detect) Parainfluenza 4 (PCR) Not detected (Not Detect) RSV (PCR) Not detected (Not Detect) Entero/Rhino (PCR) Detected H (Not Detect) 12/22/22 Range/Units 21:13 WBC (4.5-11.0) X10^3/uL RBC (4.5-5.9) X10^6/uL Hgb (13.5-17.5) g/dL Hct (41-53) % MCV (80-100) fL MCH (26-34) PG MCHC (30-36) % RDW (11.6-14.8) % Plt Count (150-400) X10^3/uL Neut % (Auto) (50-75) % Lymph % (Auto) (25-40) % [place] % (Auto) (3-14) % Eos % (Auto) (2-4) % Baso % (Auto) (0-2) % Neut # (Auto) (9073-7407) /uL Lymph # (Auto) (0864-6058) /uL [place] # (Auto) (0-900) /uL Eos # (Auto) (0-450) /uL Baso # (Auto) (0-100) /uL Sodium (137-145) mmol/L Potassium (3.4-5.1) mmol/L Chloride (98-107) mmol/L Carbon Dioxide (22-32) mmol/L BUN (9-20) mg/dL Creatinine (0.66-1.25) mg/dL Estimated GFR (>60) mL/min BUN/Creatinine Ratio (6-22) Glucose (70-100) mg/dL Lactate 0.9 (0.7-2.1) mmol/L Calcium (8.4-10.2) mg/dL Total Bilirubin (0.2-1.3) mg/dL AST (17-59) IU/L ALT (<50) IU/L Alkaline Phosphatase (38-126) U/L Total Creatine Kinase (55-170) U/L CK-MB (CK-2) CK-MB (CK-2) Rel Index Troponin I (0.01-0.034) ng/mL Total Protein (6.3-8.2) g/dL Albumin (3.5-5.0) g/dL Globulin (1.7-4.1) g/dL Albumin/Globulin Ratio (1.0-2.8) Procalcitonin (<0.5) ng/mL Chlamy pneumoniae PCR (Not Detect) Adenovirus (PCR) (Not Detect) B. pertussis DNA (PCR) (Not Detecte) B.parapertussis DNA PCR (Not Detecte) Coronavirus OC43 (PCR) (Not Detect) Coronavirus HKU1 (PCR) (Not Detect) Coronavirus 229E (PCR) (Not Detect) SARS-CoV-2 (PCR) (Not Detecte) Coronavirus NL63 (PCR) (Not Detect) Human Metapneumovir PCR (Not Detect) Influenza Type A (PCR) (Not Detect) Influenza Type B (PCR) (Not Detect) M. pneumoniae (PCR) (Not Detect) Parainfluenza 1 (PCR) (Not Detect) Parainfluenza 2 (PCR) (Not Detect) Parainfluenza 3 (PCR) (Not Detect) Parainfluenza 4 (PCR) (Not Detect) RSV (PCR) (Not Detect) Entero/Rhino (PCR) (Not Detect) Urine Dip Bedside Urine Glucose Negative Bedside Urine Bilirubin - Negative Bedside Urine Ketone - Negative Urine Specific [place] 1.030 Bedside Urine Occult Blood - Negative Bedside Urine pH 6.0 Bedside Urine Protein + 30 Bedside Urine Urobilinogen - Negative Bedside Urine Nitrite - Negative Bedside Urine Leukocytes - Negative Esterase MDM Narrative Medical decision making narrative: CC: 21-year-old male with nausea, vomiting, diarrhea and subjective fever for 24 hours or so Complicating co-morbidities: Colon cancer, renal transplant, hydrocortisone Data collected from: Patient Medical records reviewed: Prior notes reviewed in our EMR Differential considered, but not limited to: Pneumonia, infectious diarrhea, viral etiology, electrolyte abnormality versus other Exam documented above, pertinent findings include: Moist mucous membranes, heart rate regular, lungs clear, nonlabored breathing, abdomen soft and nontender Lab Test results independently reviewed as above. Pertinent findings: Minimal leukocytosis, no significant left shift, electrolytes and renal function within normal, urine noninfectious, respiratory panel positive for rhino/enterovirus Independently reviewed EKG as above Imaging studies independently reviewed: Acute abdominal series with no acute process Consultations: discussed with systems security consultant nephrology at [facility]. We discussed the patient's history and physical exam as well as clinical course and diagnostics. She shares the opinion that this is very reassuring and no further evaluation is indicated, she did ask that we send EBV and CMV if able from existing blood and confirmed that we had sent blood cultures. Also, she actively sent a message to the transplant team and assured me they would reach out later in the day Treatments: IV fluids, ondansetron Re-evaluations: Patient with tremendous improvement after above-stated therapies, vital signs have normalized, he is awake, alert and oriented, tolerating orals. Discussion: Patient with nausea, vomiting and diarrhea over the course of the day with subjective fever. History and physical exam are reassuring, response to therapies are reassuring. Diagnostics suggest against any bacterial source, renal function at baseline. I discussed with on-call Nephrology who is happy with our workup and response to therapies, no further workup indicated. Return precautions including persistent vomiting, pain, ongoing fever, weakness or other concerning symptoms Disposition: see below, along with detailed discharge instructions that have been reviewed with patient as well as indications for ED re-evaluation and additional outpatient follow up Discharge Plan Departure Patient Disposition: Home Clinical Impression: Vomiting, Diarrhea, Rhinovirus infection Instructions: Nausea and Vomiting-Adult Activity Restrictions/Additional Instructions: *You have been diagnosed with [nausea, vomiting, and diarrhea possibly due to Rhinovirus/enterovirus ] *What to do: *Please continue to take your regular medications as directed. [x ] New medication prescriptions sent to your pharmacy: [[facility] ] [ ] New medication written as a paper prescription [ ] No new medications given *Please follow up with your primary care provider in 2-3 days, call for an appointment. Let them know you were seen in the Emergency Department and that we ask that you be seen in follow up. We will electronically transmit a record of today's note if your PCP is in our system *If you do not have a primary care provider please contact the [facility] Resource line at [phone]. They will ask some questions about your medical history and help get you set up with a doctor in the community. *Return to Emergency Department if you should have any new, worsening or concerning symptoms, such as [fever greater than 101 F, shaking chills, worsening pain, persistent vomiting or other bothersome symptoms] Prescriptions: New ondansetron 4 mg tablet,disintegrating 4 mg PO TID-QID PRN (Reason: nausea and vomiting) Qty: 10 0RF No Action sevelamer HCl 800 mg tablet 800 mg PO TID enoxaparin 300 mg/3 mL solution subcut escitalopram oxalate 5 mg tablet 5 mg PO DAILY fluticasone propionate [Allergy Relief (fluticasone)] 50 mcg/actuation spray,suspension 2 spray NASAL DAILY Infant-Toddler Multivitamin Drops PO albuterol sulfate [Ventolin HFA] 90 mcg/actuation HFA aerosol inhaler 4 puff inhalation Q4-6H PRN (Reason: Cough or wheeze) Qty: 8.5 4RF sirolimus [Rapamune] 1 MG/1 ML solution 0.25 mg PO Qty: 0 prednisone 10 MG tablet 10 mg PO Qty: 0 atovaquone [Mepron] 750 MG/5 ML suspension 8.5 ml PO Qty: 0 posaconazole [Noxafil] 100 MG tablet,delayed release (DR/EC) 400 mg PO Qty: 0 [CPY086] 8 ml Qty: 0 azithromycin [Zithromax Z-Papa] 250 MG tablet 250 mg PO SEE INSTRUCTIONS Qty: 0 montelukast [Singulair] 10 MG tablet 10 mg PO QDAY Qty: 0 fluticasone propion-salmeterol [Advair Diskus] 100 MCG/50 MCG blister with device 1 puff BID Qty: 0 Atrovent HFA 12.9 GM HFA aerosol inhaler 2 puff INH TID Qty: 0 sodium chloride 0.9 % 10 ML solution 5 ml INH BID Qty: 0 omeprazole 20 MG capsule,delayed release(DR/EC) 20 mg PO QDAY Qty: 0 Zenpep 10,000 UNITS capsule,delayed release(DR/EC) 2 ecc PO AC Qty: 0 clonidine HCl 0.1 MG tablet 0.2 mg PO Qty: 0 amlodipine [Norvasc] 5 MG tablet 5 mg PO BID Qty: 0 MULTIVITAMIN 2 tab PO QDAY Qty: 0 [VIACTIV CA=D] 1 tab TID Qty: 0 [BICITRA] 30 ml PO TID Qty: 0 potassium chloride [Klor-Con 8] 8 MEQ tablet extended release 3.75 ml PO TID Qty: 0 cholecalciferol (vitamin D3) 10,000 UNIT tablet 10,000 unit PO Qty: 0 loratadine [Claritin] 10 MG tablet 10 mg PO QDAYP PRNQty: 0 lorazepam 1 MG tablet 1 mg PO QID Qty: 0 OMEGA-3 FATTY ACIDS (FISH OIL) 6.25 ml PO BID Qty: 0 ondansetron 4 MG tablet,disintegrating 5 ml PO TID Qty: 0 oxycodone [OxyContin] 40 MG tablet,oral only,ext.rel.12 hr 4 ml PO QID Qty: 0 [D5W/NA/MAG/K] 1,500 ml IV SEE INSTRUCTIONS Qty: 0 Aranesp (in polysorbate) 100 MCG/0.5 ML syringe 0.1 mg IJ QWEEKMO Qty: 0 Nplate 250 MCG recon soln 80 mcg SQ QWEEK Qty: 0 simethicone [Gas Relief 80 (simethicone)] 80 mg tablet,chewable 80 mg PO BID Qty: 120 1RF calcium carbonate [Calcium Antacid] 200 mg calcium (500 mg) tablet,chewable See Rx Instructions .ROUTE .COMPLEX Qty: 90 4RF Dose Instruction: TAKE 2 TABLETS BY MOUTH THREE TIMES DAILY FOR INDIGESTION Rx Instructions: TAKE 2 TABLETS BY MOUTH THREE TIMES DAILY FOR INDIGESTION lorazepam 2 mg/mL concentrate 2 mg sublingual .COMPLEX PRN (Reason: seizure) Qty: 30 0RF Rx Instructions: 1 mL at onset of seizure. Take another 1 ml after two minutes if still seizing. hydromorphone 2 mg tablet See Rx Instructions .ROUTE .COMPLEX Qty: 152 0RF Dose Instruction: TAKE 3 TABLETS (3 X 2 MG) BY MOUTH EVERY 3 HOURS NEEDED FOR PAIN Rx Instructions: TAKE 3 TABLETS (3 X 2 MG) BY MOUTH EVERY 3 HOURS NEEDED FOR PAIN methadone 10 mg tablet See Rx Instructions .ROUTE .COMPLEX Qty: 60 0RF Dose Instruction: TAKE 1 TABLET BY MOUTH EVERY 12 HOURS FOR PAIN Rx Instructions: TAKE 1 TABLET BY MOUTH EVERY 12 HOURS FOR PAIN gabapentin 300 mg capsule See Rx Instructions .ROUTE .COMPLEX Qty: 90 2RF Dose Instruction: TAKE 1 CAPSULE BY MOUTH THREE TIMES DAILY Rx Instructions: TAKE 1 CAPSULE BY MOUTH THREE TIMES DAILY oxcarbazepine 150 mg tablet See Rx Instructions .ROUTE .COMPLEX Qty: 240 2RF Dose Instruction: TAKE 4 TABLETS BY MOUTH EVERY MORNING AND TAKE 3 TABLETS BY MOUTH EVERY EVENING Rx Instructions: TAKE 4 TABLETS BY MOUTH EVERY MORNING AND TAKE 4 TABLETS BY MOUTH EVERY EVENING levetiracetam 500 mg tablet See Rx Instructions .ROUTE .COMPLEX Qty: 120 2RF Dose Instruction: TAKE 2 TABLETS BY MOUTH (1000 MG) TWICE DAILY FOR SEIZURES Rx Instructions: TAKE 2 TABLETS BY MOUTH (1000 MG) TWICE DAILY FOR SEIZURES trazodone 100 mg tablet See Rx Instructions .ROUTE .COMPLEX Qty: 30 0RF Dose Instruction: TAKE 1 TABLET BY MOUTH BEDTIME Rx Instructions: TAKE 1 TABLET BY MOUTH BEDTIME oxcarbazepine 600 mg tablet 600 mg PO BID Qty: 60 0RF hydrocortisone 10 mg tablet See Rx Instructions .ROUTE .COMPLEX Qty: 75 0RF Dose Instruction: TAKE 1/2 TABLET EVERY AM, 1/2 TABLET AT NOON AND 1/4 TABLET EVERY EVENING FOR ADRENAL SUPPORT Rx Instructions: TAKE 1/2 TABLET EVERY AM, 1/2 TABLET AT NOON AND 1/4 TABLET EVERY EVENING FOR ADRENAL SUPPORT epinephrine 0.3 mg/0.3 mL auto-injector 0.3 mg IM Q5-15M PRN (Reason: anaphylaxis) Qty: 2 2RF Rx Instructions: do not exceed 3 doses per episode epinephrine [EpiPen 2-Papa] 0.3 mg/0.3 mL auto-injector 0.3 mg IM Q5-15M PRN (Reason: anaphylaxis) Qty: 2 0RF Rx Instructions: do not exceed 3 doses per episode Referrals: Yrody Lantigua MD [Primary Care Provider] - Stand Alone Forms: Patient Portal/API
--- NOTE | 2022-12-22 20:42 | DI.RAD.S_ITS ---
PROCEDURE: XR ACUTE ABDOMEN SERIES INDICATIONS: N/V/D, possible sepsis TECHNIQUE: One view chest and two views of the abdomen were acquired. COMPARISON: [facility], , XR CHEST 1V, 05/19/2022, 20:27. [facility], , ABDOMEN 1 VIEW, 03/17/2016, 9:00. FINDINGS: Surgical changes and devices: None. Chest: Lungs are clear. Heart size is normal. No pleural effusions. No pneumoperitoneum. Abdomen: Bowel gas pattern is normal. No suspicious calcifications. There are surgical sutures in the pelvis as well as a few surgical clips in the lower abdomen. Bones: Visualized osseous structures demonstrate prominent trabecula suggestive of osteopenia. IMPRESSION: 1. No acute cardiopulmonary disease. 2. No acute intra-abdominal radiographic abnormality. Dictated by: Da Proctor M.D. on 12/22/2022 at 21:48 Approved by: Da Proctor M.D. on 12/22/2022 at 21:51
[2022-12-22 21:04] LABS: Add Manual Diff / Slide Review NO; Basophils Absolute Auto 100 /uL (0-100); Basophils Percent Auto 0.5 % (0-2); Eosinophils Absolute Auto 100 /uL (0-450); Eosinophils Percent Auto 0.7 % (2-4); Hemoglobin 11.2 g/dL (13.5-17.5); Lymphocytes Absolute Auto 2500 /uL (1100-4500); Lymphocytes Percent Auto 19.6 % (25-40); Mean Corpuscular Hemoglobin 30.6 PG (26-34); Mean Corpuscular Volume 92.8 fL (80-100); Monocytes Absolute Auto 800 /uL (0-900); Neutrophils Absolute Auto 9300 /uL (1500-7000); Neutrophils Percent Auto 73.2 % (50-75); Platelet Count 321 X10^3/uL (150-400); Red Blood Cell Count 3.66 X10^6/uL (4.5-5.9); Red Cell Distribution Width 13.7 % (11.6-14.8); White Blood Cell Count 12.7 X10^3/uL (4.5-11.0)
[2022-12-22] MEDS: LACTATED RINGERS 1,000 ML 200 ML IV (21:09)
[2022-12-22 21:13] LABS: Alanine Aminotransferase 28 IU/L (<50); Albumin 4.5 g/dL (3.5-5.0); Alkaline Phosphatase 106 U/L (38-126); Aspartate Aminotransferase 29 IU/L (17-59); BUN Creatinine Ratio 15.8 (6-22); Bilirubin Total 0.4 mg/dL (0.2-1.3); Blood Urea Nitrogen 19 mg/dL (9-20); Calcium 10.4 mg/dL (8.4-10.2); Carbon Dioxide 22 mmol/L (22-32); Chloride 108 mmol/L (98-107); Creatine Kinase 70 U/L (55-170); Estimated Glomerular Filt Rate > 60 mL/min (>60); Globulin 4.6 g/dL (1.7-4.1); Glucose 103 mg/dL (70-100); HEMOLYSIS 16 (0-50); Potassium 4.3 mmol/L (3.4-5.1); Sodium 139 mmol/L (137-145); Total Protein 9.1 g/dL (6.3-8.2)
[2022-12-22 21:25] LABS: Troponin I < 0.012 ng/mL (0.01-0.034)
[2022-12-22 21:29] LABS: Procalcitonin 0.13 ng/mL (<0.5)
[2022-12-22 21:35] LABS: Lactate (Lactic Acid) 0.9 mmol/L (0.7-2.1)
[2022-12-22 22:18] LABS: Adenovirus Not Detected (Not Detect); B. parapertussis Not Detected (Not Detecte); Bordetella pertussis Not Detected (Not Detecte); Chlamydophila pneumoniae Not Detected (Not Detect); Coronavirus 229E Not Detected (Not Detect); Coronavirus HKU1 Not Detected (Not Detect); Coronavirus NL 63 Not Detected (Not Detect); Coronavirus OC43 Not Detected (Not Detect); Human Metapneumovirus Not Detected (Not Detect); Human Rhinovirus/Enterovirus Detected (Not Detect); Influenza A Not Detected (Not Detect); Influenza B Not Detected (Not Detect); Mycoplasma pneumoniae Not Detected (Not Detect); Parainfluenza Virus 1 Not Detected (Not Detect); Parainfluenza Virus 2 Not Detected (Not Detect); Parainfluenza Virus 3 Not Detected (Not Detect); Parainfluenza Virus 4 Not Detected (Not Detect); Respiratory Syncytial Virus Not Detected (Not Detect); SARS- CoV-2 Not Detected (Not Detecte)
[2022-12-23] VITALS: BP 94/53; PULSE 47; RESP 27; O2SAT 98
[2022-12-23 00:30] VITALS: BP 112/55; PULSE 45; RESP 26; O2SAT 99
[2022-12-23 01:00] VITALS: BP 104/57; PULSE 67; RESP 24; O2SAT 99
[2022-12-23 01:30] VITALS: BP 115/68; PULSE 76; RESP 31; O2SAT 98
[2022-12-23] MEDS: LACTATED RINGERS 1,000 ML 1000 ML IV (01:38)
[2022-12-23] MEDS: ONDANSETRON 4 MG ODT PREPACK 1 BOTTLE MISC (02:13)
== END 2022-12-23 02:18 | disposition home or self-care (01) ==
PROVIDERS: Emergency Provider Emergency Medicine; PCP Pediatrics Pediatric Nephrology
DX: R11.2 Nausea with vomiting, unspecified (principal); R19.7 Diarrhea, unspecified; B34.8 Other viral infections of unspecified site; Z20.822 Contact with and (suspected) exposure to COVID-19
CPT/HCPCS: 36415; 74022; 80053; 81003; 82550; 83605; 84145; 84484; 85025; 86645; 87040; 87633; 96360; 96361; 99284

== ENCOUNTER 2024-09-23 10:39 | Emergency (ER) | payer OTHER, SELFPAY ==
[2024-09-23] VITALS (9 sets, daily range): BP systolic 110–147; BP diastolic 62–73; PULSE 71–105; RESP 17–26; TEMP 36.5; O2SAT 97–99; BMI 19.3
[2024-09-23 11:37] LABS: Add Manual Diff / Slide Review NO; Basophils Absolute Auto 100 /uL (0-100); Basophils Percent Auto 0.4 % (0-2); Eosinophils Absolute Auto 0 /uL (0-450); Eosinophils Percent Auto 0.2 % (2-4); Hemoglobin 12.7 g/dL (13.5-17.5); Lymphocytes Absolute Auto 1300 /uL (1100-4500); Lymphocytes Percent Auto 9.7 % (25-40); Mean Corpuscular HGB Conc 32.4 % (30-36); Mean Corpuscular Volume 92.4 fL (80-100); Monocytes Absolute Auto 800 /uL (0-900); Monocytes Percent Auto 6.4 % (3-14); Neutrophils Absolute Auto 11100 /uL (1500-7000); Neutrophils Percent Auto 83.3 % (50-75); Platelet Count 237 X10^3/uL (150-400); Red Blood Cell Count 4.22 X10^6/uL (4.5-5.9); Red Cell Distribution Width 14.7 % (11.6-14.8); White Blood Cell Count 13.3 X10^3/uL (4.5-11.0)
[2024-09-23 11:39] LABS: Alanine Aminotransferase 20 IU/L (<50); Albumin 4.7 g/dL (3.5-5.0); Albumin Globulin Ratio 1.1 (1.0-2.8); Alkaline Phosphatase 71 U/L (38-126); Aspartate Aminotransferase 28 IU/L (17-59); BUN Creatinine Ratio 13.8 (6-22); Bilirubin Total 0.7 mg/dL (0.2-1.3); Blood Urea Nitrogen 16 mg/dL (9-20); Calcium 10.7 mg/dL (8.4-10.2); Carbon Dioxide 23 mmol/L (22-32); Chloride 106 mmol/L (98-107); Estimated Glomerular Filt Rate > 60 mL/min (>60); Globulin 4.1 g/dL (1.7-4.1); Glucose 103 mg/dL (70-100); HEMOLYSIS < 15 (0-50); Potassium 3.7 mmol/L (3.4-5.1); Sodium 141 mmol/L (137-145); Total Protein 8.8 g/dL (6.3-8.2)
--- NOTE | 2024-09-23 11:39 | PC.NURSE ---
Pt able to ambulate from EMS stretcher to [facility]. Baseline left arm weakness, history of brain surgery after hemorrhage. Pt responding appropriately. States his breathing is much better now. No visual injury to his head. Pt texting on his phone requesting a phone supervisor blast [employer].
[2024-09-23 11:56] LABS: Prolactin 11.4 ng/mL (3.7-17.9)
--- NOTE | 2024-09-23 12:59 | ED_ITS ---
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 He reports he was anaphylactic reaction to bee stings. He says last time he was stung by a bee he needed 7 pediatric epinephrine. Today he was eating peanut butter with blueberries when he felt like his throat was swelling. He quickly ran and gave himself 1 epinephrine shot. He waited about 2-3 minutes and gave himself a 2nd 1. According to EMS the right who was on scene initially thought he was having seizure activity. Patient does not quite remember but denies biting his tongue or losing urine. He isn't sure that he has a peanut butter allergy. He reports history of peanut allergy 8 years ago while undergoing some sort of chemotherapy for colorectal cancer. But he has been eating peanuts since. He denies any sort of bee sting. He has not had any sort of rash. Now in the ED he is overall feeling much better. On Anticoagulants: No (81mg Aspirin) Related Data Home Medications Medication Instructions Recorded Confirmed MULTIVITAMIN 2 tab PO QDAY ##0 03/17/16 10/18/20 OMEGA-3 FATTY ACIDS (FISH OIL) 6.25 ml PO BID ##0 03/17/16 10/18/20 [BICITRA] 30 ml PO TID ##0 03/17/16 10/18/20 [UCF314] 8 ml ##0 03/17/16 10/18/20 [D5W/NA/MAG/K] 1,500 ml IV SEE INSTRUCTIONS ##0 03/17/16 10/18/20 [VIACTIV CA=D] 1 tab TID ##0 03/17/16 10/18/20 amlodipine 5 mg tablet (Norvasc) 5 mg PO BID ##0 03/17/16 10/18/20 atovaquone 750 mg/5 mL oral 8.5 ml PO ##0 03/17/16 10/18/20 suspension (Mepron) azithromycin 250 mg tablet 250 mg PO SEE INSTRUCTIONS ##0 03/17/16 10/18/20 (Zithromax Z-Papa) cholecalciferol (vitamin D3) 250 10,000 unit PO ##0 03/17/16 10/18/20 mcg (10,000 unit) tablet clonidine HCl 0.1 mg tablet 0.2 mg PO ##0 03/17/16 10/18/20 darbepoetin amina in polysorbat 100 0.1 mg IJ QWEEKMO ##0 03/17/16 10/18/20 mcg/0.5 mL in polysorbate injection syringe (Aranesp) fluticasone 100 mcg-salmeterol 50 1 puff BID ##0 03/17/16 10/18/20 mcg/dose blistr powdr for inhalation (Advair Diskus) ipratropium bromide 17 2 puff INH TID ##0 03/17/16 10/18/20 mcg/actuation HFA aerosol inhaler (Atrovent HFA) [id number] 2 ecc PO AC ##0 03/17/16 10/18/20 10,000-34,000-55,000 unit capsule,delayed rel (Zenpep) loratadine 10 mg tablet (Claritin) 10 mg PO QDAYP PRN #0 tabs 03/17/16 10/18/20 lorazepam 1 mg tablet 1 mg PO QID ##0 03/17/16 10/18/20 montelukast 10 mg tablet 10 mg PO QDAY ##0 03/17/16 10/18/20 (Singulair) omeprazole 20 mg capsule,delayed 20 mg PO QDAY ##0 03/17/16 10/18/20 release ondansetron 4 mg disintegrating 5 ml PO TID ##0 03/17/16 10/18/20 tablet oxycodone 40 mg tablet,crush 4 ml PO QID ##0 03/17/16 10/18/20 resistant,extended release 12 hr (OxyContin) posaconazole 100 mg tablet,delayed 400 mg PO ##0 03/17/16 10/18/20 release (Noxafil) potassium chloride 8 mEq 3.75 ml PO TID ##0 03/17/16 10/18/20 tablet,extended release (Klor-Con) prednisone 10 mg tablet 10 mg PO #0 tabs 03/17/16 10/18/20 romiplostim 250 mcg subcutaneous 80 mcg SQ QWEEK ##0 03/17/16 10/18/20 solution (Nplate) sirolimus 1 mg/mL oral solution 0.25 mg PO ##0 03/17/16 10/18/20 (Rapamune) sodium chloride 0.9 % 5 ml INH BID ##0 03/17/16 10/18/20 enoxaparin 300 mg/3 mL SUBCUT 09/15/19 10/18/20 subcutaneous solution escitalopram oxalate 5 mg tablet 5 mg PO DAILY 09/15/19 10/18/20 fluticasone propionate 50 2 spray intranasal DAILY 09/15/19 10/18/20 mcg/actuation nasal spray,suspension (Allergy Relief (fluticasone)) pediatric multivitamin no.165 drop PO 09/15/19 10/18/20 (-Toddler Multivitamin oral drops) sevelamer HCl 800 mg tablet 800 mg PO TID 09/15/19 10/18/20 Previous Rx's Medication Instructions Recorded albuterol sulfate 90 mcg/actuation 4 puff inhalation Q4-6H PRN Cough 05/03/20 aerosol inhaler (Ventolin HFA) or wheeze #8.5 grams simethicone 80 mg chewable tablet 80 mg PO BID #120 tabs 06/25/20 (Gas Relief 80 (simethicone)) calcium carbonate (Calcium Antacid) See Rx Instructions .Route 07/30/20 .COMPLEX #90 caps lorazepam 2 mg/mL oral concentrate 2 mg sublingual .COMPLEX PRN 12/28/20 seizure #30 mL hydromorphone 2 mg tablet See Rx Instructions .Route 01/28/21 .COMPLEX #152 tabs methadone 10 mg tablet See Rx Instructions .Route 02/07/21 .COMPLEX #60 tabs gabapentin 300 mg capsule See Rx Instructions .Route 02/25/21 .COMPLEX #90 caps epinephrine 0.3 mg/0.3 mL 0.3 mg (0.3 mL) IM Q5-15M PRN 03/18/21 injection, auto-injector anaphylaxis #2 ea oxcarbazepine 150 mg tablet See Rx Instructions .Route 05/31/21 .COMPLEX #240 tabs levetiracetam 500 mg tablet See Rx Instructions .Route 06/14/21 .COMPLEX #120 tabs oxcarbazepine 600 mg tablet 600 mg PO BID #60 tabs 07/12/21 trazodone 100 mg tablet See Rx Instructions .Route 07/12/21 .COMPLEX #30 tabs hydrocortisone 10 mg tablet See Rx Instructions .Route 08/14/21 .COMPLEX #75 tabs epinephrine 0.3 mg/0.3 mL 0.3 mg (0.3 mL) IM Q5-15M PRN 02/06/22 injection, auto-injector (EpiPen anaphylaxis #2 ea 2-Papa) ondansetron 4 mg disintegrating 4 mg PO TID-QID PRN nausea and 12/23/22 tablet vomiting #10 tabs epinephrine 0.3 mg/0.3 mL 0.3 mg (0.3 mL) IM Q5-15M PRN 09/23/24 injection, auto-injector anaphylaxis #2 ea Allergies Allergy/AdvReac Type Severity Reaction Status Date / Time bee venom protein (honey bee) Allergy Severe Anaphylaxis Verified 12/22/22 20:26 chlorhexidine [CHLORHEXIDINE] Allergy Severe ANAPHLAXIS Verified 12/22/22 20:26 clocinizine Allergy Severe Anaphylaxis Verified 12/22/22 20:26 peppermint Allergy Severe Anaphylaxis Verified 12/22/22 20:26 Sulfa (Sulfonamide Allergy Severe Anaphylaxis Verified 12/22/22 20:26 Antibiotics) amphotericin B Allergy Unknown Verified 12/22/22 20:26 [From AMBISOME] ethyl alcohol [ETHYL ALCOHOL] Allergy Unknown Verified 12/22/22 20:26 mannitol [MANNITOL] Allergy Unknown Verified 12/22/22 20:26 vancomycin [VANCOMYCIN] Allergy Unknown Verified 12/22/22 20:26 Review of Systems Hematologic/Lymphatic On Anticoagulants: No (81mg Aspirin) Patient History Medical History Aplastic anemia 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 Intracranial hemorrhage Status post craniectomy Status post total colectomy Social History Smoking Status: Never smoker Smoking Status: Never smoker alcohol intake frequency: 0-2 drinks per day Alcohol type: hard liquor Exam Initial Vital Signs Initial Vital Signs: Vital Signs Temperature 97.7 F 09/23/24 10:35 Pulse Rate 71 09/23/24 10:35 Respiratory Rate 18 09/23/24 10:35 Blood Pressure 133/62 09/23/24 10:35 Pulse Oximetry 97 09/23/24 10:35 Oxygen Delivery Method Room Air 09/23/24 10:35 GENERAL: Alert well-appearing 23-year-old male and in no acute distress. HEENT: Head atraumatic,EOMI, pupils reactive, face symmetric, moist mucous membranes CARDIOVASCULAR: Regular rate and rhythm without murmurs, rubs or gallops. RESPIRATORY: Breath sounds equal bilaterally, no wheezes rales or rhonchi. ABDOMEN: Soft, nontender. Normoactive bowel sounds all 4 quadrants. No guarding or rebound. EXTREMITIES: Normal range of motion, no clubbing or edema. Neurovascularly intact NEUROLOGICAL: Alert and oriented x4.Normal gait and speech. At baseline left- sided weakness SKIN: Warm, dry, no laceration, no petechiae, no rashes or lesions. Course Orders Ordered: ED Orders 09/23/24 11:15 CBC Auto Diff [Complete Blood Count AUTO DIFF] Stat CMP [Comprehensive Metabolic Panel] Stat Prolactin Stat Vital Signs Vital signs: Vital Signs - 8 hr 09/23/24 10:35 09/23/24 10:44 09/23/24 10:45 Temperature 97.7 F Pulse Rate 71 93 H 83 Respiratory Rate 18 17 Blood Pressure 133/62 Pulse Oximetry 97 99 Oxygen Delivery Method Room Air 09/23/24 10:45 09/23/24 11:00 09/23/24 11:00 Temperature Pulse Rate 92 H Respiratory Rate 21 Blood Pressure 147/65 H 133/62 Pulse Oximetry 97 Oxygen Delivery Method Room Air 09/23/24 11:30 09/23/24 11:33 09/23/24 11:33 Temperature Pulse Rate 96 H 98 H Respiratory Rate 26 H Blood Pressure 142/68 H Pulse Oximetry 98 98 Oxygen Delivery Method 09/23/24 12:00 09/23/24 12:00 09/23/24 12:30 Temperature Pulse Rate 105 H Respiratory Rate Blood Pressure 110/73 124/72 Pulse Oximetry 98 Oxygen Delivery Method 09/23/24 12:30 09/23/24 13:00 09/23/24 13:00 Temperature Pulse Rate 96 H 89 Respiratory Rate 22 25 H Blood Pressure 123/68 Pulse Oximetry Oxygen Delivery Method MDM - Neuro Symptoms/Deficit Lab Data 09/23/24 11:15 09/23/24 11:15 Labs: Lab Results 09/23/24 Range/Units 11:15 WBC 13.3 H (4.5-11.0) X10^3/uL RBC 4.22 L (4.5-5.9) X10^6/uL Hgb 12.7 L (13.5-17.5) g/dL Hct 39.0 L (41-53) % MCV 92.4 (80-100) fL MCH 30.0 (26-34) PG MCHC 32.4 (30-36) % RDW 14.7 (11.6-14.8) % Plt Count 237 (150-400) X10^3/uL Neut % (Auto) 83.3 H (50-75) % Lymph % (Auto) 9.7 L (25-40) % [place] % (Auto) 6.4 (3-14) % Eos % (Auto) 0.2 L (2-4) % Baso % (Auto) 0.4 (0-2) % Neut # (Auto) 61955 H (9387-4272) /uL Lymph # (Auto) 1300 (5677-7459) /uL [place] # (Auto) 800 (0-900) /uL Eos # (Auto) 0 (0-450) /uL Baso # (Auto) 100 (0-100) /uL Sodium 141 (137-145) mmol/L Potassium 3.7 (3.4-5.1) mmol/L Chloride 106 (98-107) mmol/L Carbon Dioxide 23 (22-32) mmol/L BUN 16 (9-20) mg/dL Creatinine 1.16 (0.66-1.25) mg/dL Estimated GFR > 60 (>60) mL/min BUN/Creatinine Ratio 13.8 (6-22) Glucose 103 H (70-100) mg/dL Calcium 10.7 H (8.4-10.2) mg/dL Total Bilirubin 0.7 (0.2-1.3) mg/dL AST 28 (17-59) IU/L ALT 20 (<50) IU/L Alkaline Phosphatase 71 (38-126) U/L Total Protein 8.8 H (6.3-8.2) g/dL Albumin 4.7 (3.5-5.0) g/dL Globulin 4.1 (1.7-4.1) g/dL Albumin/Globulin Ratio 1.1 (1.0-2.8) Prolactin 11.4 (3.7-17.9) ng/mL MDM Narrative Medical decision making narrative: Year old male with multiple comorbidities presenting to day with possible anaphylaxis. Unclear what he was allergic to but he felt like he was having a hard time breathing. Had gave himself to pediatric epis at home. There is questionable seizure activity but patient also reports he does get seizure like activity with severe pain he thinks may have happened. Blood work has been reviewed overall reassuring no electrolyte abnormality or leukocytosis. Prolactin is actually within normal limits. Questionable if he actually had an allergic reaction I think unlikely that he had a seizure today. 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 will give him adult epinephrine pen Discharge Plan Departure Patient Disposition: Home Clinical Impression: Anaphylactic reaction Instructions: Anaphylaxis Activity Restrictions/Additional Instructions: *You have been diagnosed with anaphylaxis *What to do: At this time please you may need allergy testing to determine if you are truly allergic *Continue to take medications as directed Epinephrine pen as needed *Follow up with your primary care provider in 2-3 days or call [phone] *Return to ER if you should have increased difficulty breathing or any new, worsening or concerning symptoms Prescriptions: New epinephrine 0.3 mg/0.3 mL auto-injector 0.3 mg IM Q5-15M PRN (Reason: anaphylaxis) Qty: 2 0RF Rx Instructions: do not exceed 3 doses per episode No Action sevelamer HCl 800 mg tablet 800 mg PO TID enoxaparin 300 mg/3 mL solution subcut escitalopram oxalate 5 mg tablet 5 mg PO DAILY fluticasone propionate [Allergy Relief (fluticasone)] 50 mcg/actuation spray,suspension 2 spray NASAL DAILY -Toddler Multivitamin Drops PO albuterol sulfate [Ventolin HFA] 90 mcg/actuation HFA aerosol inhaler 4 puff inhalation Q4-6H PRN (Reason: Cough or wheeze) Qty: 8.5 4RF sirolimus [Rapamune] 1 MG/1 ML solution 0.25 mg PO Qty: 0 prednisone 10 MG tablet 10 mg PO Qty: 0 atovaquone [Mepron] 750 MG/5 ML suspension 8.5 ml PO Qty: 0 posaconazole [Noxafil] 100 MG tablet,delayed release (DR/EC) 400 mg PO Qty: 0 [SMY696] 8 ml Qty: 0 azithromycin [Zithromax Z-Papa] 250 MG tablet 250 mg PO SEE INSTRUCTIONS Qty: 0 montelukast [Singulair] 10 MG tablet 10 mg PO QDAY Qty: 0 fluticasone propion-salmeterol [Advair Diskus] 100 MCG/50 MCG blister with device 1 puff BID Qty: 0 Atrovent HFA 12.9 GM HFA aerosol inhaler 2 puff INH TID Qty: 0 sodium chloride 0.9 % 10 ML solution 5 ml INH BID Qty: 0 omeprazole 20 MG capsule,delayed release(DR/EC) 20 mg PO QDAY Qty: 0 Zenpep 10,000 UNITS capsule,delayed release(DR/EC) 2 ecc PO AC Qty: 0 clonidine HCl 0.1 MG tablet 0.2 mg PO Qty: 0 amlodipine [Norvasc] 5 MG tablet 5 mg PO BID Qty: 0 MULTIVITAMIN 2 tab PO QDAY Qty: 0 [VIACTIV CA=D] 1 tab TID Qty: 0 [BICITRA] 30 ml PO TID Qty: 0 potassium chloride [Klor-Con 8] 8 MEQ tablet extended release 3.75 ml PO TID Qty: 0 cholecalciferol (vitamin D3) 10,000 UNIT tablet 10,000 unit PO Qty: 0 loratadine [Claritin] 10 MG tablet 10 mg PO QDAYP PRNQty: 0 lorazepam 1 MG tablet 1 mg PO QID Qty: 0 OMEGA-3 FATTY ACIDS (FISH OIL) 6.25 ml PO BID Qty: 0 ondansetron 4 MG tablet,disintegrating 5 ml PO TID Qty: 0 oxycodone [OxyContin] 40 MG tablet,oral only,ext.rel.12 hr 4 ml PO QID Qty: 0 [D5W/NA/MAG/K] 1,500 ml IV SEE INSTRUCTIONS Qty: 0 Aranesp (in polysorbate) 100 MCG/0.5 ML syringe 0.1 mg IJ QWEEKMO Qty: 0 Nplate 250 MCG recon soln 80 mcg SQ QWEEK Qty: 0 simethicone [Gas Relief 80 (simethicone)] 80 mg tablet,chewable 80 mg PO BID Qty: 120 1RF calcium carbonate [Calcium Antacid] 200 mg calcium (500 mg) tablet,chewable See Rx Instructions .ROUTE .COMPLEX Qty: 90 4RF Dose Instruction: TAKE 2 TABLETS BY MOUTH THREE TIMES DAILY FOR INDIGESTION Rx Instructions: TAKE 2 TABLETS BY MOUTH THREE TIMES DAILY FOR INDIGESTION lorazepam 2 mg/mL concentrate 2 mg sublingual .COMPLEX PRN (Reason: seizure) Qty: 30 0RF Rx Instructions: 1 mL at onset of seizure. Take another 1 ml after two minutes if still seizing. hydromorphone 2 mg tablet See Rx Instructions .ROUTE .COMPLEX Qty: 152 0RF Dose Instruction: TAKE 3 TABLETS (3 X 2 MG) BY MOUTH EVERY 3 HOURS NEEDED FOR PAIN Rx Instructions: TAKE 3 TABLETS (3 X 2 MG) BY MOUTH EVERY 3 HOURS NEEDED FOR PAIN methadone 10 mg tablet See Rx Instructions .ROUTE .COMPLEX Qty: 60 0RF Dose Instruction: TAKE 1 TABLET BY MOUTH EVERY 12 HOURS FOR PAIN Rx Instructions: TAKE 1 TABLET BY MOUTH EVERY 12 HOURS FOR PAIN gabapentin 300 mg capsule See Rx Instructions .ROUTE .COMPLEX Qty: 90 2RF Dose Instruction: TAKE 1 CAPSULE BY MOUTH THREE TIMES DAILY Rx Instructions: TAKE 1 CAPSULE BY MOUTH THREE TIMES DAILY oxcarbazepine 150 mg tablet See Rx Instructions .ROUTE .COMPLEX Qty: 240 2RF Dose Instruction: TAKE 4 TABLETS BY MOUTH EVERY MORNING AND TAKE 3 TABLETS BY MOUTH EVERY EVENING Rx Instructions: TAKE 4 TABLETS BY MOUTH EVERY MORNING AND TAKE 4 TABLETS BY MOUTH EVERY EVENING levetiracetam 500 mg tablet See Rx Instructions .ROUTE .COMPLEX Qty: 120 2RF Dose Instruction: TAKE 2 TABLETS BY MOUTH (1000 MG) TWICE DAILY FOR SEIZURES Rx Instructions: TAKE 2 TABLETS BY MOUTH (1000 MG) TWICE DAILY FOR SEIZURES trazodone 100 mg tablet See Rx Instructions .ROUTE .COMPLEX Qty: 30 0RF Dose Instruction: TAKE 1 TABLET BY MOUTH BEDTIME Rx Instructions: TAKE 1 TABLET BY MOUTH BEDTIME oxcarbazepine 600 mg tablet 600 mg PO BID Qty: 60 0RF hydrocortisone 10 mg tablet See Rx Instructions .ROUTE .COMPLEX Qty: 75 0RF Dose Instruction: TAKE 1/2 TABLET EVERY AM, 1/2 TABLET AT NOON AND 1/4 TABLET EVERY EVENING FOR ADRENAL SUPPORT Rx Instructions: TAKE 1/2 TABLET EVERY AM, 1/2 TABLET AT NOON AND 1/4 TABLET EVERY EVENING FOR ADRENAL SUPPORT ondansetron 4 mg tablet,disintegrating 4 mg PO TID-QID PRN (Reason: nausea and vomiting) Qty: 10 0RF epinephrine 0.3 mg/0.3 mL auto-injector 0.3 mg IM Q5-15M PRN (Reason: anaphylaxis) Qty: 2 2RF Rx Instructions: do not exceed 3 doses per episode epinephrine [EpiPen 2-Papa] 0.3 mg/0.3 mL auto-injector 0.3 mg IM Q5-15M PRN (Reason: anaphylaxis) Qty: 2 0RF Rx Instructions: do not exceed 3 doses per episode Referrals: Yordy Lantigua MD [Primary Care Provider] - Stand Alone Forms: Patient Portal/API/Survey
== END 2024-09-23 13:21 | disposition home or self-care (01) ==
PROVIDERS: Emergency Provider Emergency Medicine; PCP Pediatrics Pediatric Nephrology
DX: T78.2XXA Anaphylactic shock, unspecified, initial encounter (principal); Z94.0 Kidney transplant status; E24.9 Cushing's syndrome, unspecified; Z86.73 Personal history of transient ischemic attack (TIA), and cerebral infarction without residual deficits
CPT/HCPCS: 36415; 80053; 84146; 85025; 99284

== ENCOUNTER → 2024-10-13 17:27 | Outpatient (CLI) | payer OTHER, SELFPAY ==
--- NOTE | 2024-10-13 17:32 | DI.RAD.S_ITS ---
PROCEDURE: XR LUMBAR SPINE 2-3V INDICATIONS: RT side lower back pain TECHNIQUE: 3 views of the lumbar spine were acquired. COMPARISON: None. FINDINGS: Lumbar spine curvature and alignment: Normal. Bones: Mild L1, severe L2, minimal L3, moderate L4 and mild L5 compression fracture appreciated. Disc spaces: Normal in height without significant degeneration. Mild L5-S1 degenerative facet disease noted. Soft tissues: No soft tissue swelling, calcification or mass. IMPRESSION: Multiple lumbar compression fractures. This is quite unusual in a young man. Suggest DEXA scan to evaluate for osteoporosis in a male patient. Also please correlate with risk factors for osteoporosis Dictated by: Loco Liang M.D. on 10/14/2024 at 11:29 Approved by: Loco Liang M.D. on 10/14/2024 at 11:33
== END ==
PROVIDERS: PCP Pediatrics Pediatric Nephrology; Referring Provider Pediatrics Pediatric Nephrology; Visit Provider Nurse Practitioner Family
DX: M48.56XA Collapsed vertebra, not elsewhere classified, lumbar region, initial encounter for fracture (principal); M47.816 Spondylosis without myelopathy or radiculopathy, lumbar region; M54.50 Low back pain, unspecified
CPT/HCPCS: 72100